=== PATIENT | male | born 1955 | race Caucasian/White ===

== ENCOUNTER → 2016-09-05 | Outpatient (CLI) | payer BC ==
[~2016-09-05] MED LIST: ACET-1256 PO; ALLO100T PO; ASPI81TA21 PO; ATOR-26 PO; CHOL100010; ENOX40IN SQ; ERGO500037 PO; EZET10TA63 PO; GLC/500 PO; LISI-461 PO; MAGN1CAP2 PO; MAGN400C2 PO; METF-384 PO; METO25TA56 PO; SITA50TA3 PO; WARF2TAB8 PO; WARF4TAB43 PO; WARF6TAB5 PO; ZNTT/150 PO
[2016-09-05 09:48] LABS: BASO % 0.4 %; BASO ABS # 0.03 K/uL (0-0.2); COMPLETE YES; EOS % 3.7 %; IG% 0.3 %; LYMPH % 25.8 %; LYMPH ABS # 1.76 K/uL (1.2-3.4); MEAN CELL VOLUME 94.9 fL (80-100); MEAN CORPUSCULAR HEMOGLOBIN 30.3 pg (25-34); MEAN PLATELET VOLUME 10.5 fL (7.4-10.4); MONO % 5.6 %; NEUT % 64.2 %; PLATELET COUNT 221 K/uL (130-400); RED BLOOD COUNT 4.32 M/uL (4.7-6.1); WHITE BLOOD COUNT 6.82 K/uL (4.8-10.8)
[2016-09-05 10:03] LABS: BLOOD UREA NITROGEN 20 mg/dl (7-18); BUN/CREATININE RATIO 14.4 (10-20); CARBON DIOXIDE 22 mmol/L (21-32); CHLORIDE 110 mmol/L (98-107); CHOLESTEROL 121 mg/dl (0-200); GLUCOSE 118 mg/dl (70-99); MAGNESIUM 1.6 mg/dl (1.8-2.4); POTASSIUM 4.4 mmol/L (3.5-5.1); SODIUM 141 mmol/L (136-145); TRIGLYCERIDES 192 mg/dl (0-150); VERY LOW DENSITY LIPOPROT CALC 38 mg/dl
[2016-09-05 10:06] LABS: CALCIUM 8.7 mg/dl (8.5-10.1)
[2016-09-05 10:07] LABS: CHOLESTEROL/HDL RATIO 3.5; HDL CHOLESTEROL 35 mg/dl; LDL CHOLESTEROL CALCULATED 48 mg/dl; PHOSPHORUS 1.8 mg/dl (2.5-4.9)
[2016-09-05 10:12] LABS: URINE APPEARANCE CLEAR (CLEAR); URINE BILIRUBIN NEG (NEG); URINE COLOR YELLOW; URINE NITRITE NEG (NEG); URINE SPECIFIC GRAVITY 1.018 (1.000-1.030); UROBILINOGEN NEG (NEG); ZZUR CULT IF INDIC CLEAN CATCH NO
[2016-09-05 10:17] LABS: MANUAL MICROSCOPIC REQUIRED? NO; REVIEW REQ? NO
[2016-09-05 10:29] LABS: ESTIMATED AVERAGE GLUCOSE 143 mg/dl; HA1C FLAG Normal (Normal)
[2016-09-05 20:30] LABS: URINE PROTIEN/CREAT RATIO 0.2 (0-0.2); URINE TOTAL PROTEIN 48.2 mg/dl (0-11.9)
== END | disposition home or self-care (01) ==
LOC: C.LAB1850 06:59
PROVIDERS: ATTEND Internal Medicine Nephrology
DX: E11.9 Type 2 diabetes mellitus without complications (principal); E78.00 Pure hypercholesterolemia, unspecified; N18.3 Chronic kidney disease, stage 3 (moderate)

== ENCOUNTER → 2017-02-26 | Outpatient (CLI) | payer BC ==
[~2017-02-26] MED LIST changes: -ACET-1256 PO; -CHOL100010; -ENOX40IN SQ; -GLC/500 PO; -MAGN400C2 PO; -WARF4TAB43 PO
[2017-02-26 09:56] LABS: BLOOD UREA NITROGEN 20 mg/dl (7-18); BUN/CREATININE RATIO 12.9 (10-20); CALCIUM 8.7 mg/dl (8.5-10.1); CARBON DIOXIDE 20 mmol/L (21-32); CHLORIDE 111 mmol/L (98-107); CREATININE 1.53 mg/dl (0.60-1.40); GLUCOSE 118 mg/dl (70-99); POTASSIUM 4.5 mmol/L (3.5-5.1); SODIUM 140 mmol/L (136-145); URIC ACID 9.2 mg/dl (2.6-7.2)
[2017-02-26 09:59] LABS: CHOLESTEROL 125 mg/dl (0-200); CHOLESTEROL/HDL RATIO 3.9; HDL CHOLESTEROL 32 mg/dl; LDL CHOLESTEROL CALCULATED 48 mg/dl; PHOSPHORUS 2.2 mg/dl (2.5-4.9); TRIGLYCERIDES 223 mg/dl (0-150); VERY LOW DENSITY LIPOPROT CALC 45 mg/dl
[2017-02-26 10:07] LABS: ESTIMATED AVERAGE GLUCOSE 134 mg/dl; HA1C FLAG Normal (Normal)
== END | disposition home or self-care (01) ==
LOC: C.LAB1850 06:53
PROVIDERS: ATTEND Nurse Practitioner Family
DX: N18.3 Chronic kidney disease, stage 3 (moderate) (principal); E78.00 Pure hypercholesterolemia, unspecified; E11.22 Type 2 diabetes mellitus with diabetic chronic kidney disease; M10.9 Gout, unspecified

== ENCOUNTER → 2017-03-05 | Day surgery (SDC) | payer BC ==
[2017-02-19 10:52] VITALS: Ht 179.1 cm; Wt 136.4 kg
[~2017-03-05] VITALS: Ht 179.1 cm; Wt 136.4 kg
[~2017-03-05] MED LIST changes: +ATROPINE SULFATE 0.1 MG/ML 5ML SYR IV PRN; +ENOX40IN SQ; +EpHEDrine SULFATE INJ 50 MG/ML AMP IV PRN; +LIDOCAINE HCL 2% 2 ML VIAL (20MG/ML) ONE; +MIDAZOLAM HCL 1 MG/ML 2ML VIAL ONE; +PHENYLEPHRINE 100MCG/ML 5ML SYR ONE; +PROPOFOL IV EMULSION 10 MG/ML 20 ML VIAL IV ONE
--- NOTE | 2017-03-05 08:37 | Endo History and Physical ---
History & Physical Date of Service: Mar 05, 2017. Chief Complaint: Screening Referring Physician: RUBEN Baptiste III History of Present Illness 61 yo CM who presents for screening colonoscopy. Past Surgical History Hx Cardiac Surgery: No Hx Internal Defibrillator: No Hx Pacemaker: No Hx Abdominal Surgery: No Hx of Implantable Prosthesis: No Hx Post-Op Nausea and Vomiting: No Hx Cancer Surgery: No Hx Thoracic Surgery: No Hx Orthopedic: Yes (RT RCR, RT CTR, LUMBAR FUSION) Hx Urinary Tract Surgery: No Family History None Social History Smoking Status: Former Smoker Hx Substance Use: No Hx Alcohol Use: No (RARELY) Allergies Coded Allergies: No Known Allergies (Verified , 02/19/17) Current Medications Reported Home Medications Medications Dose Route/Sig Max Daily Dose Days Date Category Dose Instructions Lovenox (Enoxaparin Sodium) 40 Mg/0.4 Ml Inj 40 Mg SQ DAILY 03/05/17 Reported Zyloprim (Allopurinol) 100 Mg Tab 1 Tab PO DAILY 30 03/04/17 Reported Increase to 200 mg daily after 30 days Magnesium (Magnesium Oxide (Mg Supplement) 400 Mg Cap 1 Cap PO 3XWK 02/19/17 Reported Vitamin D 64482 Unit (Ergocalciferol) 50,000 Unit Cap 50,000 Unit PO WK 02/19/17 Reported Lipitor (Atorvastatin Calcium) 80 Mg Tab 80 Mg PO QPM 02/19/17 Reported Jantoven (Warfarin Sodium) 2 Mg Tab 7 Mg PO 2XWK 02/19/17 Reported Jantoven (Warfarin Sodium) 6 Mg Tab 6 Mg PO 5XWK 02/19/17 Reported Lopressor (Metoprolol Tartrate) 25 Mg Tab 25 Mg PO BID 02/19/17 Reported Zantac (Ranitidine HCl) 150 Mg Tab 150 Mg PO BID 02/19/17 Reported Glucophage (Metformin Hcl) 1,000 Mg Tab 1,000 Mg PO BID 02/19/17 Reported Januvia (Sitagliptin) 50 Mg Tab 50 Mg PO QAM 06/20/14 Reported Ecotrin Or Generic (Aspirin) 81 Mg Tab 81 Mg PO QAM 03/21/12 Reported Zestril (Lisinopril) 10 Mg Tab 10 Mg PO QAM 03/19/07 Reported Zetia (Ezetimibe) 10 Mg Tab 10 Mg PO QAM 03/19/07 Reported Vital Signs Weight (Kilograms): 136.36 Height (Feet): 5 Height (Inches): 10.5 Date Time Temp Pulse Resp B/P (MAP) Pulse Ox O2 Delivery O2 Flow Rate FiO2 03/05/17 08:10 36.7 74 20 121/88 (99) 95 Room Air Physical Exam General Appearance: WD/WN, no apparent distress Respiratory/Chest: Auscultation: breath sounds normal Cardiovascular: Heart Auscultation: RRR Abdomen: Bowel Sounds: normal Inspection & Palpation: soft, non-distended, no tenderness, guarding & rebound Assessment and Plan Assessment: 61 yo CM who presents for screening colonoscopy. Plan: Proceed with colonoscopy.
--- NOTE | 2017-03-05 09:26 | Anesthesiology Progress Note ---
Anesthesia Post Op Note Date & Time Mar 05, 2017 at 09:26 Vital Signs Pain Intensity: 0 Vital Signs Past 12 Hours Date Time Temp Pulse Resp B/P (MAP) Pulse Ox O2 Delivery O2 Flow Rate FiO2 03/05/17 09:16 72 16 90/62 (71) 94 Room Air 03/05/17 08:10 36.7 74 20 121/88 (99) 95 Room Air Notes Mental Status: alert / awake / arousable, participated in evaluation Pt Amnestic to Procedure: Yes Nausea / Vomiting: adequately controlled Pain: adequately controlled Airway Patency, RR, SpO2: stable & adequate BP & HR: stable & adequate Hydration State: stable & adequate Anesthetic Complications: no major complications apparent
--- NOTE | 2017-03-05 09:29 | Discharge Instructions ---
Endoscopy Patient Instructions Date / Procedure(s) Performed Mar 05, 2017. Colonoscopy Allergy Information Coded Allergies: No Known Allergies (Verified , 02/19/17) Discharge Date / Findings Mar 05, 2017. Colon polyp Internal hemorrhoids Medication Instructions Stopped Medication(s): stopped warfarin Friday,took ASA yesterday OK to resume all medications today as prescribed Reported Home Medications Medications Dose Route/Sig Max Daily Dose Days Date Category Dose Instructions Lovenox (Enoxaparin Sodium) 40 Mg/0.4 Ml Inj 40 Mg SQ DAILY 03/05/17 Reported Zyloprim (Allopurinol) 100 Mg Tab 1 Tab PO DAILY 30 03/04/17 Reported Increase to 200 mg daily after 30 days Magnesium (Magnesium Oxide (Mg Supplement) 400 Mg Cap 1 Cap PO 3XWK 02/19/17 Reported Vitamin D 62606 Unit (Ergocalciferol) 50,000 Unit Cap 50,000 Unit PO WK 02/19/17 Reported Lipitor (Atorvastatin Calcium) 80 Mg Tab 80 Mg PO QPM 02/19/17 Reported Jantoven (Warfarin Sodium) 2 Mg Tab 7 Mg PO 2XWK 02/19/17 Reported Jantoven (Warfarin Sodium) 6 Mg Tab 6 Mg PO 5XWK 02/19/17 Reported Lopressor (Metoprolol Tartrate) 25 Mg Tab 25 Mg PO BID 02/19/17 Reported Zantac (Ranitidine HCl) 150 Mg Tab 150 Mg PO BID 02/19/17 Reported Glucophage (Metformin Hcl) 1,000 Mg Tab 1,000 Mg PO BID 02/19/17 Reported Januvia (Sitagliptin) 50 Mg Tab 50 Mg PO QAM 06/20/14 Reported Ecotrin Or Generic (Aspirin) 81 Mg Tab 81 Mg PO QAM 03/21/12 Reported Zestril (Lisinopril) 10 Mg Tab 10 Mg PO QAM 03/19/07 Reported Zetia (Ezetimibe) 10 Mg Tab 10 Mg PO QAM 03/19/07 Reported Provider Instructions Activity Restrictions - No exercising or heavy lifting for 24 hours. - Do not drink alcohol the day of the procedure. - Do not drive a car or operate machinery until the day after the procedure. - Do not make any important decisions or sign important papers in 24 hours after the procedure. Following Day: - Return to full activity which may include returning to work/school. Diet Start your diet with liquids and light foods (jello, soup, juice, toast). Then eat your usual diet if not nauseated. Treatment For Common After Affects For mild abdominal pain, bloating, or excessive gas: - Rest - Eat lightly - Lie on right side Follow-Up Information Follow-up with RUBEN Baptiste III as scheduled Anesthesia Information What You Should Know You have had a procedure that required some medicine to reduce anxiety and discomfort. This treatment is called moderate sedation. After receiving the treatment, you may be sleepy, but you will be able to breathe on your own. The effects of the treatment may last for several hours. Follow these instructions along with Activity/Diet recommendations noted above: * Do NOT do anything where dizziness or clumsiness would be dangerous. * Rest quietly at home today, then you can be up and about tomorrow. * Have a responsible person stay with you the rest of today. * You may have had an I.V. today. If so, you may take the dressing off later today. Recommendations Call your doctor if: * Trouble breathing * Continuous vomiting for more than 24 hours * Temperature above 101 degrees * Severe abdominal pain or bloating * Pain not relieved by pain medicine ordered * There is increased drainage or redness from any incision * A large amount of rectal bleeding greater than 2-3 tablespoons. (If you had a polyp/s removed or have hemorrhoids, a small amount of blood - from the rectum is to be expected.) * You have any unanswered questions or concerns. IN THE EVENT OF A SERIOUS EMERGENCY, GO TO THE NEAREST EMERGENCY ROOM Your discharge instructions were prepared by provider Konrad Chaves. Patient Instructions Signature Page Armando Owens Patient (or Guardian) Signature/Date: I have read and understand the instructions given to me by my caregivers. Caregiver/RN/Doctor Signature/Date: The above-named patient and/or guardian has received patient instructions on this date. + Original Patient Signature Page (only) stays with chart. Please make copy for patient.
[2017-03-05 09:46] VITALS: BP 119/84; PULSE 67; O2SAT 95
--- NOTE | 2017-03-05 20:24 | GI REPORT ---
Procedure Date: 03/05/2017 8:11 AM Procedure: Colonoscopy Indications: Screening for colorectal malignant neoplasm Medicines: Monitored Anesthesia Care Complications: No immediate complications. Estimated Blood Loss: Estimated blood loss: none. Procedure: Pre-Anesthesia Assessment: - Prior to the procedure, a History and Physical was performed, and patient medications and allergies were reviewed. The patient's tolerance of previous anesthesia was also reviewed. The risks and benefits of the procedure and the sedation options and risks were discussed with the patient. All questions were answered, and informed consent was obtained. Prior Anticoagulants: The patient last took aspirin 1 day, Coumadin (warfarin) 5 days and Lovenox (enoxaparin) 1 day prior to the procedure. ASA Grade Assessment: IV - A patient with severe systemic disease that is a constant threat to life. After reviewing the risks and benefits, the patient was deemed in satisfactory condition to undergo the procedure. After I obtained informed consent, the scope was passed under direct vision. Throughout the procedure, the patient's blood pressure, pulse, and oxygen saturations were monitored continuously. The scope was introduced through the anus and advanced to the cecum, identified by appendiceal orifice and ileocecal valve. The colonoscopy was performed without difficulty. The patient tolerated the procedure well. The quality of the bowel preparation was good. The ileocecal valve, appendiceal orifice, and rectum were photographed. Findings: The perianal and digital rectal examinations were normal. A 6 mm polyp was found in the ascending colon. The polyp was sessile. The polyp was removed with a hot snare. Resection and retrieval were complete. Non-bleeding internal hemorrhoids were found during retroflexion. The hemorrhoids were small. Impression: - One 6 mm polyp in the ascending colon, removed with a hot snare. Resected and retrieved. - Non-bleeding internal hemorrhoids. Recommendation: - Resume previous diet. - Continue present medications. - Repeat colonoscopy for surveillance based on pathology results. - Return to primary care physician as previously scheduled. Konrad Chaves DO 03/05/2017 9:33:35 AM This report has been signed electronically. Note Initiated On: 03/05/2017 8:11 AM I attest to the content of the Intraoperative Record and orders documented therein, exceptions below
== END | disposition home or self-care (01) ==
LOC: C.GI 07:39
PROVIDERS: ATTEND Internal Medicine
DX: Z12.11 Encounter for screening for malignant neoplasm of colon (principal); D12.2 Benign neoplasm of ascending colon; K64.8 Other hemorrhoids; I25.10 Atherosclerotic heart disease of native coronary artery without angina pectoris; I10 Essential (primary) hypertension; E11.9 Type 2 diabetes mellitus without complications; I25.2 Old myocardial infarction; J45.909 Unspecified asthma, uncomplicated; G47.33 Obstructive sleep apnea (adult) (pediatric); Z68.41 Body mass index [BMI] 40.0-44.9, adult; E66.01 Morbid (severe) obesity due to excess calories; Z98.890 Other specified postprocedural states; Z79.01 Long term (current) use of anticoagulants; Z87.891 Personal history of nicotine dependence

== ENCOUNTER → 2017-08-07 | Outpatient (CLI) | payer BC ==
[~2017-08-07] MED LIST changes: -ATROPINE SULFATE 0.1 MG/ML 5ML SYR IV PRN; -ENOX40IN SQ; -EpHEDrine SULFATE INJ 50 MG/ML AMP IV PRN; -LIDOCAINE HCL 2% 2 ML VIAL (20MG/ML) ONE; -MIDAZOLAM HCL 1 MG/ML 2ML VIAL ONE; -PHENYLEPHRINE 100MCG/ML 5ML SYR ONE; -PROPOFOL IV EMULSION 10 MG/ML 20 ML VIAL IV ONE; +RANI150T85 PO; -ZNTT/150 PO
[2017-08-07 09:55] LABS: BASO % 0.6 %; BASO ABS # 0.05 K/uL (0-0.2); EOS % 8.9 %; EOS ABS # 0.72 K/uL (0-0.5); HEMATOCRIT 41.2 % (42-52); HEMOGLOBIN 13.5 g/dL (14.0-18.0); IG# 0.03 K/uL (0.00-0.02); LYMPH % 32.6 %; LYMPH ABS # 2.63 K/uL (1.2-3.4); MEAN CELL VOLUME 94.3 fL (80-100); MEAN CORPUSCULAR HEMOGLOBIN 30.9 pg (25-34); MEAN CORPUSCULAR HGB CONC 32.8 g/dl (32-36); MEAN PLATELET VOLUME 10.3 fL (7.4-10.4); MONO % 5.1 %; MONO ABS # 0.41 K/uL (0.11-0.59); NEUT % 52.4 %; NEUT ABS # 4.22 K/uL (1.4-6.5); PLATELET COUNT 249 K/uL (130-400); RED CELL DISTRIBUTION WIDTH CV 14.4 % (11.5-14.5); RED CELL DISTRIBUTION WIDTH SD 49.3 fL (36.4-46.3); WHITE BLOOD COUNT 8.06 K/uL (4.8-10.8)
[2017-08-07 10:55] LABS: ALBUMIN 3.6 gm/dl (3.4-5.0); ALT/SGPT 29 U/L (12-78); AST/SGOT 22 U/L (15-37); BLOOD UREA NITROGEN 23 mg/dl (7-18); CALCIUM 8.8 mg/dl (8.5-10.1); CARBON DIOXIDE 22 mmol/L (21-32); CREATININE 1.41 mg/dl (0.60-1.40); GLUCOSE 108 mg/dl (70-99); POTASSIUM 4.2 mmol/L (3.5-5.1); SODIUM 139 mmol/L (136-145); URIC ACID 5.2 mg/dl (2.6-7.2)
[2017-08-07 10:59] LABS: ALKALINE PHOSPHATASE 106 U/L (45-117); PHOSPHORUS 2.8 mg/dl (2.5-4.9); TOTAL PROTEIN 7.3 gm/dl (6.4-8.2)
== END | disposition home or self-care (01) ==
LOC: C.LAB1850 07:07
PROVIDERS: ATTEND Nurse Practitioner Family
DX: M10.9 Gout, unspecified (principal); E78.00 Pure hypercholesterolemia, unspecified; E11.22 Type 2 diabetes mellitus with diabetic chronic kidney disease; N18.3 Chronic kidney disease, stage 3 (moderate)

== ENCOUNTER → 2017-09-01 | Day surgery (SDC) | payer BC ==
[2017-08-26 08:54] VITALS: Ht 179.1 cm; Wt 136.4 kg
[~2017-09-01] VITALS: Ht 179.1 cm; Wt 136.4 kg
[~2017-09-01] MED LIST changes: +ASPI-319 PO; -ASPI81TA21 PO; +FENTANYL CITRATE INJ 50 MCG/1 ML 2 ML VIAL ONE; +LIDOCAINE HCL 2% 2 ML VIAL (20MG/ML) ONE; +PROPOFOL IV EMULSION 10 MG/ML 20 ML VIAL IV ONE; +RIVA1TAB4 PO; +SODIUM CHLORIDE 0.9% 500ML 500 ML IV ONE; -WARF2TAB8 PO; -WARF6TAB5 PO
[2017-09-01 08:27] VITALS: TEMP 36.6
--- NOTE | 2017-09-01 08:42 | Endo History and Physical ---
History & Physical Date of Service: Sep 01, 2017. Chief Complaint: Dysphagia Referring Physician: Don Verma History of Present Illness 62 yo CM who presents for EGD secondary to dysphagia. Past Surgical History Hx Cardiac Surgery: No Hx Internal Defibrillator: No Hx Pacemaker: No Hx Abdominal Surgery: No Hx of Implantable Prosthesis: No Hx Post-Op Nausea and Vomiting: No Hx Cancer Surgery: No Hx Thoracic Surgery: No Hx Orthopedic: Yes (RT RCR, RT CTR, LUMBAR FUSION) Hx Urinary Tract Surgery: No Family History None Social History Smoking Status: Former Smoker Hx Substance Use: No Hx Alcohol Use: Yes (RARELY) Allergies Coded Allergies: No Known Allergies (Verified , 08/26/17) Current Medications Reported Home Medications Medications Dose Route/Sig Max Daily Dose Days Date Category Zyloprim (Allopurinol) 100 Mg Tab 200 Mg PO QAM 08/26/17 Reported Xarelto (Rivaroxaban) 20 Mg Tab 20 Mg PO QPM 08/26/17 Reported Magnesium (Magnesium Oxide (Mg Supplement) 400 Mg Cap 1 Cap PO 3XWK 02/19/17 Reported Vitamin D 31209 Unit (Ergocalciferol) 50,000 Unit Cap 50,000 Unit PO WK 02/19/17 Reported Lipitor (Atorvastatin Calcium) 80 Mg Tab 80 Mg PO QPM 02/19/17 Reported Lopressor (Metoprolol Tartrate) 25 Mg Tab 25 Mg PO BID 02/19/17 Reported Zantac (Ranitidine HCl) 150 Mg Tab 150 Mg PO BID 02/19/17 Reported Glucophage (Metformin Hcl) 1,000 Mg Tab 1,000 Mg PO BID 02/19/17 Reported Januvia (Sitagliptin) 50 Mg Tab 50 Mg PO QAM 06/20/14 Reported Ecotrin Or Generic (Aspirin) 81 Mg Tab 81 Mg PO QAM 03/21/12 Reported Zestril (Lisinopril) 10 Mg Tab 10 Mg PO QAM 03/19/07 Reported Zetia (Ezetimibe) 10 Mg Tab 10 Mg PO QAM 03/19/07 Reported Vital Signs Weight (Kilograms): 136.36 Height (Feet): 5 Height (Inches): 10.5 Date Time Temp Pulse Resp B/P (MAP) Pulse Ox O2 Delivery O2 Flow Rate FiO2 09/01/17 08:27 36.6 75 20 157/89 (111) 95 Room Air Physical Exam General Appearance: WD/WN, no apparent distress Respiratory/Chest: Auscultation: breath sounds normal Cardiovascular: Heart Auscultation: RRR Abdomen: Bowel Sounds: normal Inspection & Palpation: soft, non-distended, no tenderness, guarding & rebound Assessment and Plan Assessment: 62 yo CM who presents for EGD secondary to dysphagia. Plan: Proceed with EGD.
--- NOTE | 2017-09-01 09:32 | GI REPORT ---
Procedure Date: 09/01/2017 9:12 AM Procedure: Upper GI endoscopy Indications: Dysphagia Medicines: Monitored Anesthesia Care Complications: No immediate complications. Estimated Blood Loss: Estimated blood loss: none. Procedure: Pre-Anesthesia Assessment: - Prior to the procedure, a History and Physical was performed, and patient medications and allergies were reviewed. The patient's tolerance of previous anesthesia was also reviewed. The risks and benefits of the procedure and the sedation options and risks were discussed with the patient. All questions were answered, and informed consent was obtained. Prior Anticoagulants: The patient last took aspirin 1 day and Xarelto (rivaroxaban) 3 days prior to the procedure. ASA Grade Assessment: III - A patient with severe systemic disease. After reviewing the risks and benefits, the patient was deemed in satisfactory condition to undergo the procedure. After obtaining informed consent, the endoscope was passed under direct vision. Throughout the procedure, the patient's blood pressure, pulse, and oxygen saturations were monitored continuously. The scope was introduced through the mouth, and advanced to the second part of duodenum. The upper GI endoscopy was accomplished without difficulty. The patient tolerated the procedure well. Findings: Moderately severe esophagitis with no bleeding was found. Biopsies were taken with a cold forceps for histology in the mid and distal esophagus. One benign-appearing, intrinsic stenosis was found. This stenosis was moderately severe and measured 1.2 cm (inner diameter) x 1 cm (in length). Passage of the endoscope resulted in distal esophageal dilation. The stenosis was traversed. The stomach was normal. The examined duodenum was normal. Impression: - Moderately severe chronic esophagitis. Biopsied. - Benign-appearing esophageal stenosis. - Normal stomach. - Normal examined duodenum. Recommendation: - Resume previous diet. - Use Protonix (pantoprazole) 40 mg PO BID. - Stop Zantac (ranitidine) therapy - Await pathology results. - Return to primary care physician as previously scheduled. Konrad Chaves, DO 09/01/2017 9:32:20 AM This report has been signed electronically. Note Initiated On: 09/01/2017 9:12 AM I attest to the content of the Intraoperative Record and orders documented therein, exceptions below
--- NOTE | 2017-09-01 09:34 | Discharge Instructions ---
Endoscopy Patient Instructions Date / Procedure(s) Performed Sep 01, 2017. EGD Allergy Information Coded Allergies: No Known Allergies (Verified , 08/26/17) Discharge Date / Findings Sep 01, 2017. Esophageal stricture Esophagitis s/p biopsies Medication Instructions Stopped Medication(s): Xarelto stopped 08/29/17 Metformin stopped 08/30/17 81mg Aspirin stopped 08/31/17 1) Stop Ranitidine 2) Start Protonix 40mg by mouth twice daily 3) OK to resume all other medications as prescribed Reported Home Medications Medications Dose Route/Sig Max Daily Dose Days Date Category Zyloprim (Allopurinol) 100 Mg Tab 200 Mg PO QAM 08/26/17 Reported Xarelto (Rivaroxaban) 20 Mg Tab 20 Mg PO QPM 08/26/17 Reported Magnesium (Magnesium Oxide (Mg Supplement) 400 Mg Cap 1 Cap PO 3XWK 02/19/17 Reported Vitamin D 66234 Unit (Ergocalciferol) 50,000 Unit Cap 50,000 Unit PO WK 02/19/17 Reported Lipitor (Atorvastatin Calcium) 80 Mg Tab 80 Mg PO QPM 02/19/17 Reported Lopressor (Metoprolol Tartrate) 25 Mg Tab 25 Mg PO BID 02/19/17 Reported Zantac (Ranitidine HCl) 150 Mg Tab 150 Mg PO BID 02/19/17 Reported Glucophage (Metformin Hcl) 1,000 Mg Tab 1,000 Mg PO BID 02/19/17 Reported Januvia (Sitagliptin) 50 Mg Tab 50 Mg PO QAM 06/20/14 Reported Ecotrin Or Generic (Aspirin) 81 Mg Tab 81 Mg PO QAM 03/21/12 Reported Zestril (Lisinopril) 10 Mg Tab 10 Mg PO QAM 03/19/07 Reported Zetia (Ezetimibe) 10 Mg Tab 10 Mg PO QAM 03/19/07 Reported Provider Instructions Activity Restrictions - No exercising or heavy lifting for 24 hours. - Do not drink alcohol the day of the procedure. - Do not drive a car or operate machinery until the day after the procedure. - Do not make any important decisions or sign important papers in 24 hours after the procedure. Following Day: - Return to full activity which may include returning to work/school. Diet Start your diet with liquids and light foods (jello, soup, juice, toast). Then eat your usual diet if not nauseated. Treatment For Common After Affects For mild abdominal pain, bloating, or excessive gas: - Rest - Eat lightly - Lie on right side Follow-Up Information Follow-up with Don Verma as scheduled Anesthesia Information What You Should Know You have had a procedure that required some medicine to reduce anxiety and discomfort. This treatment is called moderate sedation. After receiving the treatment, you may be sleepy, but you will be able to breathe on your own. The effects of the treatment may last for several hours. Follow these instructions along with Activity/Diet recommendations noted above: * Do NOT do anything where dizziness or clumsiness would be dangerous. * Rest quietly at home today, then you can be up and about tomorrow. * Have a responsible person stay with you the rest of today. * You may have had an I.V. today. If so, you may take the dressing off later today. Recommendations Call your doctor if: * Trouble breathing * Continuous vomiting for more than 24 hours * Temperature above 101 degrees * Severe abdominal pain or bloating * Pain not relieved by pain medicine ordered * There is increased drainage or redness from any incision * A large amount of rectal bleeding greater than 2-3 tablespoons. (If you had a polyp/s removed or have hemorrhoids, a small amount of blood - from the rectum is to be expected.) * You have any unanswered questions or concerns. IN THE EVENT OF A SERIOUS EMERGENCY, GO TO THE NEAREST EMERGENCY ROOM Your discharge instructions were prepared by provider Konrad Chaves. Patient Instructions Signature Page Armando Owens Patient (or Guardian) Signature/Date: I have read and understand the instructions given to me by my caregivers. Caregiver/RN/Doctor Signature/Date: The above-named patient and/or guardian has received patient instructions on this date. + Original Patient Signature Page (only) stays with chart. Please make copy for patient.
[2017-09-01 10:00] VITALS: BP 125/68; PULSE 66; O2SAT 96
--- NOTE | 2017-09-01 10:06 | Anesthesiology Progress Note ---
Anesthesia Post Op Note Date & Time Sep 01, 2017 at 10:06 Vital Signs Pain Intensity: 0 Vital Signs Past 12 Hours Date Time Temp Pulse Resp B/P (MAP) Pulse Ox O2 Delivery O2 Flow Rate FiO2 09/01/17 10:00 66 20 125/68 (87) 96 Room Air 09/01/17 09:48 75 20 121/78 (92) 94 Room Air 09/01/17 09:34 75 20 107/60 (76) 94 Room Air 09/01/17 08:27 36.6 75 20 157/89 (111) 95 Room Air Notes Mental Status: alert / awake / arousable, participated in evaluation Pt Amnestic to Procedure: Yes Nausea / Vomiting: adequately controlled Pain: adequately controlled Airway Patency, RR, SpO2: stable & adequate BP & HR: stable & adequate Hydration State: stable & adequate Anesthetic Complications: no major complications apparent
== END | disposition home or self-care (01) ==
LOC: C.GI 07:57
PROVIDERS: ATTEND Internal Medicine
DX: R13.10 Dysphagia, unspecified (principal); K22.2 Esophageal obstruction; K20.9 Esophagitis, unspecified; E11.9 Type 2 diabetes mellitus without complications; I25.10 Atherosclerotic heart disease of native coronary artery without angina pectoris; G47.33 Obstructive sleep apnea (adult) (pediatric); Z98.1 Arthrodesis status; Z79.01 Long term (current) use of anticoagulants; Z79.82 Long term (current) use of aspirin

== ENCOUNTER 2024-11-02 01:48 | Inpatient (IN) ==
[2024-11-02] MEDS: OPTIRAY 320 125ml IV ONE (02:13)
--- NOTE | 2024-11-02 02:14 | Emergency Department Note ---
History of Present Illness General Chief complaint: TIA Symptoms Stated complaint: possible stroke Time Seen by Provider: 11/02/24 01:55 History of Present Illness This 69-year-old male on Coumadin for history of DVT and PE presents ER for strokelike symptoms. Patient states around 1999 his left leg felt heavy and had some numbness and tingling. At 1 AM he started to feel like his left arm was getting weak and had some slurred speech. Family was concerned and brought him in. Recent Coumadin check was 1.9. Patient states he tried to get up and noticed his arm was weak and fell striking his head. Patient denies chest pain, dyspnea, headache, neck pain, loss of vision, change in vision, abdominal pain, history of CVA. Home Medications Medication Instructions Recorded Confirmed Type aspirin 81 mg tablet 81 mg PO DAILY 02/17/19 11/02/24 History mecobalamin (vitamin B12) 1,000 1,000 mcg PO DAILY 10/23/21 11/02/24 History mcg chewable tablet cholecalciferol (vitamin D3) 25 2,000 unit PO DAILY 04/21/23 11/02/24 History mcg (1,000 unit) capsule albuterol sulfate 90 mcg/actuation 1 inh inhalation QID PRN shortness 09/10/23 11/02/24 Rx aerosol inhaler of breath or wheezing #6.7 grams pantoprazole 40 mg tablet,delayed 40 mg PO DAILY #90 tabs 01/19/24 11/02/24 Rx release ezetimibe 10 mg tablet 10 mg PO DAILY #90 tabs 05/13/24 11/02/24 Rx metformin 1,000 mg tablet 1,000 mg PO BID #180 tabs 05/13/24 11/02/24 Rx sitagliptin phosphate 50 mg tablet 50 mg PO DAILY #90 tabs 05/13/24 11/02/24 Rx (Januvia) calcitriol 0.25 mcg capsule 0.25 mcg PO .COMPLEX #36 caps 05/19/24 11/02/24 Rx allopurinol 100 mg tablet 100 mg PO DAILY #90 tabs 06/07/24 11/02/24 Rx magnesium glycinate 100 mg (as 100 mg PO BID 08/12/24 11/02/24 History glycinate) tablet warfarin 6 mg tablet See Rx Instructions PO .COMPLEX 08/12/24 11/02/24 History metoprolol tartrate 25 mg tablet 25 mg PO BID #180 tabs 08/16/24 11/02/24 Rx atorvastatin 80 mg tablet 80 mg PO DAILY #90 tabs 09/06/24 11/02/24 Rx lisinopril 10 mg tablet 10 mg PO HS #90 tabs 10/21/24 11/02/24 Rx levothyroxine 100 mcg tablet 100 mcg PO DAILY 11/02/24 11/02/24 History Allergies Allergy/AdvReac Type Severity Reaction Status Date / Time No Known Drug Allergies Allergy Verified 10/21/24 09:49 Past Med/Surg History Problem List (Updated 11/02/24 @ 12:45 by Alber Calvin MD) CVA (cerebral vascular accident) Acquired hypothyroidism Dysarthria Left-sided weakness CVA (cerebral vascular accident) (Acute) Hypocalcemia (Chronic) Hypophosphatemia (Chronic) Medical History (Updated 11/02/24 @ 12:45 by Alber Calvin MD) Hx of deep venous thrombosis Obesity Gout Vitamin B12 deficiency Subclinical hypothyroidism Vitamin D deficiency Chronic anticoagulation Acquired lymphedema Coronary artery arteriosclerosis Depression Diabetes mellitus Chronic gastroesophageal reflux disease Hypercholesterolemia Benign essential hypertension Secondary hyperparathyroidism (of renal origin) Sleep apnea Stage III chronic kidney disease History of pulmonary embolism Rotator cuff dis NEC [place] filter in place Former smoker History of gout Surgical History History of root canal procedure History of rotator cuff surgery right History of back surgery History of carpal tunnel surgery of right wrist Family History (Updated 11/02/24 @ 05:07 by Damaso Acosta MD) Father S/P CABG x 3 Coronary heart disease Grandmother (Maternal) Stroke Myocardial infarction Grandfather (Maternal) No problems noted. Grandfather (Paternal) Prostate cancer Coronary heart disease Mother , age 60 during carotid artery surgery Stroke Carotid artery stenosis Other Heart disease Hypertension Denies family history of Ovarian cancer Breast cancer Colorectal cancer Social History (Updated 11/02/24 @ 05:08 by Damaso Acosta MD) Smoking Status: Former smoker Tobacco Type: Cigarettes Age Started Using Tobacco: 18; Age Quit Using Tobacco: 40; packs per day: 0.5; Smoking End Date: 1994; Second Hand Exposure: No; Do You Dip or Chew Tobacco: No; Hx Alcohol Use: Yes Alcohol type: beer Alcohol Intake Frequency: Monthly or Less Hx Substance Use: No Preferred Language: Mozambican Communication Ability: Effective Visual Impairment: No Limitations Hearing Ability: Normal Baked Goods Stock Clerk Required: No Beliefs That Will Affect Care: None marital status: Current Living Situation: Spouse current occupational status: retired current occupation: [employer] How many Children do You have: 2 Feels Safe at Home: Yes Safety Concerns: Feels Safe At This Time Childhood Exposure to Second-Hand Smoke: Yes Diet: regular Dental Care, Regularly: Yes Physical Activity Frequency: Does not Exercise Seatbelt Use: always Sunscreen Use: Yes Assistive Devices: Glasses Review of Systems A total of 10 systems reviewed and were otherwise negative Physical Exam Vital Signs Vital Signs - 24 hr 11/02/24 01:49 11/02/24 01:59 11/02/24 02:21 Temperature 36.3 C L Temperature Source Temporal Artery Scan Pulse Rate 71 72 Pulse Rate [Apical] Pulse Rhythm Regular Pulse Strength Normal Respiratory Rate 18 Respiratory Effort / Characteristics Non-Labored Spontaneous Respiratory Depth Normal Respiratory Pattern Regular Blood Pressure 192/86 H 162/78 H Blood Pressure [Right Arm] Blood Pressure Mean 121 115 Blood Pressure Mean [Right Arm] Blood Pressure Position Sitting Pulse Oximetry 96 Oxygen Delivery Method Room Air Sepsis Recent Fever Within 48 Hours No Sepsis New/Unexplained Change in Mental Status N/A Sepsis Action Taken by Nursing No Action Required 11/02/24 02:25 11/02/24 04:06 Temperature Temperature Source Pulse Rate 71 Pulse Rate [Apical] 76 Pulse Rhythm Pulse Strength Respiratory Rate 22 22 Respiratory Effort / Characteristics Respiratory Depth Respiratory Pattern Blood Pressure Blood Pressure [Right Arm] 162/78 H Blood Pressure Mean Blood Pressure Mean [Right Arm] 106 Blood Pressure Position Pulse Oximetry 95 Oxygen Delivery Method Room Air Sepsis Recent Fever Within 48 Hours Sepsis New/Unexplained Change in Mental Status Sepsis Action Taken by Nursing VITALS: Vitals are noted on the nurse's note and reviewed by myself. Vital signs stable. GENERAL: Pleasant patient, in no acute distress, nondiaphoretic, well-developed well-nourished. SKIN: The skin was without rashes, erythema, edema, or bruising. There is no tenting of the skin. Capillary reflex less than 2 seconds. HEAD: Normocephalic atraumatic. EARS: External auditory canals clear EYES: Pupils equal round and reactive to light and accommodation. Conjunctivae without injection, sclerae without icterus. Extraocular movements intact. NOSE: Patent, no discharge. MOUTH: Mucous membranes moist. Pharynx without erythema or exudate. Uvula midline. Airway patent. Tongue does not deviate. NECK: Supple without nuchal rigidity. No lymphadenopathy. No thyromegaly. Cervical spine is nontender. No JVD. HEART: Regular rate and rhythm LUNGS: Clear to auscultation bilaterally without wheezes, rales or rhonchi. No retractions or accessory muscle use. ABDOMEN: Positive bowel sounds x 4. Normal tympanic percussion. Soft, nontender, without masses or organomegaly. Gupta sign negative. No guarding or rebound tenderness. No CVA tenderness MUSCULOSKELETAL: No muscle atrophy, erythema, or edema noted. NEURO: Patient was alert and oriented to person place and time. Left arm drifts but does not touch the bed. Left leg drifts and does not touch the bed. Mild slurred speech appreciated. Mild left-sided nasolabial fold weakness. Decreased sensation to the left lower leg. All other extremities normal sensation to light and sharp touch. Cerebellar exam intact. No other focal neurological deficits. Course Administered Medications Allopurinol (Allopurinol 100 Mg Tab) 100 mg PO DAILY MORGAN Stop: 12/02/24 08:59 Last Admin: 11/02/24 08:38 Dose: 100 mg Documented By: OS Aspirin (Aspirin 81 Mg Ectab) 81 mg PO DAILY MORGAN Stop: 12/02/24 08:59 Last Admin: 11/02/24 08:38 Dose: 81 mg Documented By: OS Atorvastatin Calcium (Atorvastatin 40 Mg Tab) 80 mg PO DAILY MORGAN Stop: 12/02/24 08:59 Last Admin: 11/02/24 08:38 Dose: 80 mg Documented By: OS Cyanocobalamin (Cyanocobalamin (B-12) 500 Mcg Tablet) 1,000 mcg PO DAILY MORGAN Stop: 12/02/24 08:59 Last Admin: 11/02/24 08:38 Dose: 1,000 mcg Documented By: OS Ezetimibe (Ezetimibe 10 Mg Tab) 10 mg PO DAILY MORGAN Stop: 12/02/24 08:59 Last Admin: 11/02/24 08:38 Dose: 10 mg Documented By: OS Insulin Aspart (Insulin Aspart Per Unit Charge) 0 units SC ACHS MORGAN Stop: 12/02/24 07:29 Last Admin: 11/02/24 12:15 Dose: 1 units Documented By: OS Co-signed By: GOMEZ Admin: 11/02/24 10:30 Dose: Not Given Documented By: OS Levothyroxine Sodium (Levothyroxine Sodium 100 Mcg Tablet) 100 mcg PO DAILYBB [facility] Stop: 12/02/24 06:29 Last Admin: 11/02/24 06:36 Dose: 100 mcg Documented By: BLACK Metoprolol Tartrate (Metoprolol Tartrate 25 Mg Tab) 25 mg PO BID MORGAN Stop: 12/02/24 08:59 Last Admin: 11/02/24 08:38 Dose: 25 mg Documented By: OS Pantoprazole Sodium (Pantoprazole 40 Mg Tab) 40 mg PO DAILY MORGAN Stop: 12/02/24 08:59 Last Admin: 11/02/24 08:39 Dose: 40 mg Documented By: OS Vitamin D (Cholecalciferol 25 Mcg (1000 Units) Tab) 25 mcg PO DAILY MORGAN Stop: 12/02/24 08:59 Last Admin: 11/02/24 08:39 Dose: 25 mcg Documented By: OS Discontinued Medications Ioversol (Optiray 320 125ml) 119 ml IV ONCE ONE Stop: 11/02/24 02:14 Last Admin: 11/02/24 02:13 Dose: 119 ml Documented By: COLEMAN Patiromer (Patiromer Calcium Sorbitex 8.4 Gm Pack) 8.4 gm PO ONCE ONE Stop: 11/02/24 10:01 Last Admin: 11/02/24 10:24 Dose: 8.4 gm Documented By: OS Critical Care Time Critical Care Time: Yes Total Critical Care Time: 35 I have personally spent 35 minutes of critical care time in the direct management of this patient. This includes bedside care, interpretation of diagnostic studies, and testing, discussion with consultants, patient, and family members, and other required patient management activities. This 35 minutes is in excess of all separately billable procedures. Medical Decision Making Medical Records Attestation: I reviewed the patient's medical records. Home Medications Current Medication List: was personally reviewed by me Laboratory Data Attestation: I reviewed the patient's lab results. 11/02/24 02:02 11/02/24 02:02 Lab Results 06/24/25 06/24/25 06/24/25 Range/Units 02:02 02:03 02:20 WBC 8.52 (4.8-10.8) K/ul RBC 4.23 L (4.70-6.10) M/uL Hgb 11.3 L (14.0-18.0) g/dl POC Hgb 12.2 L (14.0-18.0) g/dl Hct 37.6 L (42.0-52.0) % POC Hct 36 L (42-52) % MCV 88.9 (80.0-100.0) fL MCH 26.7 (25.0-34.0) pg MCHC 30.1 L (32.0-36.0) g/dL RDW Std Deviation 53.7 H (36.4-46.3) fL RDW Coeff of Brian 16.6 H (11.5-14.5) % Plt Count 235 (130-400) K/uL MPV 9.7 (9.4-12.4) fL Immature Gran % (Auto) 0.4 % Neut % (Auto) 47.3 % Lymph % (Auto) 38.8 % Gentry % (Auto) 6.2 % Eos % (Auto) 6.5 % Baso % (Auto) 0.8 % Neut # (Auto) 4.03 (1.40-6.50) K/uL Lymph # (Auto) 3.31 (1.20-3.40) K/uL Gentry # (Auto) 0.53 (0.11-0.59) K/uL Eos # (Auto) 0.55 H (0.00-0.50) K/uL Baso # (Auto) 0.07 (0.00-0.20) K/uL Immature Gran # (Auto) 0.03 (0.01-0.20) K/uL PT 22.2 H (9.0-12.0) Seconds INR 2.2 H (0.9-1.1) APTT 30 (21-31) Seconds PTT Ratio 1.1 POC Sodium 142 (135-144) mmol/L Sodium 140 (136-145) mmol/L POC Potassium 5.3 H (3.3-5.0) mmol/L Potassium 5.2 H (3.5-5.1) mmol/L POC Chloride 112 (101-112) mmol/L Chloride 111 H (98-107) mmol/L Carbon Dioxide 21 (21-32) mmol/L POC Total CO2 19 L (24-31) mmol/L Anion Gap 8 (3-11) POC Anion Gap 17.0 (16-25) mmol/L POC BUN 25 H (7-18) mg/dl BUN 27 H (6-23) mg/dl Creatinine 1.86 H (0.6-1.4) mg/dl POC Creatinine 1.9 H (0.6-1.3) mg/dl Est Cr Clr Drug Dosing 52.7 ml/min eGFR 38.69 BUN/Creatinine Ratio 14.5 (10-20) Glucose 127 H (70-99(Fasting)) mg/dl POC Glucose (70-99) mg/dl POC Glucose (other) 127 H (70-99) mg/dl Calcium 8.9 (8.6-10.3) mg/dl POC Ioniz Calcium Rufina 1.23 (1.12-1.32) mmol/l Magnesium 1.8 (1.7-2.4) mg/dl Total Bilirubin 0.5 (0.2-1.0) mg/dl AST 15 (13-39) U/L ALT 13 (7-52) U/L Alkaline Phosphatase 101 (34-104) U/L Troponin I High Sens 5.8 (0-20) pg/ml Total Protein 6.7 (6.0-8.3) gm/dl Albumin 3.7 (3.4-5.0) gm/dl Globulin 3.0 (2.5-4.0) gm/dl Albumin/Globulin Ratio 1.2 (0.9-2) Blood Type A Positive Antibody Screen NEGATIVE 11/02/24 Range/Units 02:21 WBC (4.8-10.8) K/ul RBC (4.70-6.10) M/uL Hgb (14.0-18.0) g/dl POC Hgb (14.0-18.0) g/dl Hct (42.0-52.0) % POC Hct (42-52) % MCV (80.0-100.0) fL MCH (25.0-34.0) pg MCHC (32.0-36.0) g/dL RDW Std Deviation (36.4-46.3) fL RDW Coeff of Brian (11.5-14.5) % Plt Count (130-400) K/uL MPV (9.4-12.4) fL Immature Gran % (Auto) % Neut % (Auto) % Lymph % (Auto) % Gentry % (Auto) % Eos % (Auto) % Baso % (Auto) % Neut # (Auto) (1.40-6.50) K/uL Lymph # (Auto) (1.20-3.40) K/uL Gentry # (Auto) (0.11-0.59) K/uL Eos # (Auto) (0.00-0.50) K/uL Baso # (Auto) (0.00-0.20) K/uL Immature Gran # (Auto) (0.01-0.20) K/uL PT (9.0-12.0) Seconds INR (0.9-1.1) APTT (21-31) Seconds PTT Ratio POC Sodium (135-144) mmol/L Sodium (136-145) mmol/L POC Potassium (3.3-5.0) mmol/L Potassium (3.5-5.1) mmol/L POC Chloride (101-112) mmol/L Chloride (98-107) mmol/L Carbon Dioxide (21-32) mmol/L POC Total CO2 (24-31) mmol/L Anion Gap (3-11) POC Anion Gap (16-25) mmol/L POC BUN (7-18) mg/dl BUN (6-23) mg/dl Creatinine (0.6-1.4) mg/dl POC Creatinine (0.6-1.3) mg/dl Est Cr Clr Drug Dosing ml/min eGFR BUN/Creatinine Ratio (10-20) Glucose (70-99(Fasting)) mg/dl POC Glucose 124 H (70-99) mg/dl POC Glucose (other) (70-99) mg/dl Calcium (8.6-10.3) mg/dl POC Ioniz Calcium Rufina (1.12-1.32) mmol/l Magnesium (1.7-2.4) mg/dl Total Bilirubin (0.2-1.0) mg/dl AST (13-39) U/L ALT (7-52) U/L Alkaline Phosphatase (34-104) U/L Troponin I High Sens (0-20) pg/ml Total Protein (6.0-8.3) gm/dl Albumin (3.4-5.0) gm/dl Globulin (2.5-4.0) gm/dl Albumin/Globulin Ratio (0.9-2) Blood Type Antibody Screen Imaging Data Attestation: I personally reviewed and interpreted this imaging study as follows: Radiologist's Impression: Cervical Spine CT 11/02/24 02:02 EXAM: CT cervical spine wo con CLINICAL HISTORY: [place] TECHNIQUE: CT scan of the cervical spine was performed without the administration of intravenous contrast. Contiguous axial images were obtained from the skull base to the upper thoracic spine. Coronal and sagittal reformatted images were also reviewed. One of the following dose reduction techniques was utilized for this exam. Automated exposure control, adjustment of the mA and/or kV according to patient size, and use of iterative reconstruction. (CTDI: 36.79 mGy, DLP: 1783.51 mGy*cm) COMPARISON: No previous studies are available for comparison. FINDINGS: Vertebrae: Lost cervical lordosis suggests neck muscle spasm. The vertebral bodies are normal in height and alignment. No evidence of acute fracture or dislocation. The cortical and trabecular bone patterns are normal. No signs of lytic or sclerotic lesions. Normal configuration of the posterior elements. Intervertebral Discs: The intervertebral disc spaces are preserved. No evidence of significant disc bulging or herniation. No calcifications or ossifications noted within the discs. Facet Joints: The facet joints are showing advanced degenerative changes, more evident at the right C2-C3 level. No evidence of dislocation, subluxation. Neural Foramina: The neural foramina are patent bilaterally at all levels. No evidence of foraminal narrowing. Prevertebral Soft Tissues: The prevertebral soft tissues are normal in thickness without evidence of mass or abnormal fluid collection. IMPRESSION: 1. No evidence of acute fracture or dislocation 2. Lost cervical lordosis suggests neck muscle spasm. 3. The facet joints are showing advanced degenerative changes, more evident at the right C2-C3 level. 4. MRI cervical spine is advised if clinically indicated. Electronically signed by Eduardo Green 11-02-2024 03:[address] 11/02/24 02:02 EXAM: CT head/brain wo con CLINICAL HISTORY: neuro deficit, acute stroke suspected TECHNIQUE: Axial non-contrast CT scan of the brain was performed from the skull base to the high parietal region. One of the following dose reduction techniques were utilized for this exam: Automated exposure control, adjustment of the mA and/or kV according to patient size, use of iterative reconstruction. DLP: 1783.51 mGy.cm COMPARISON: CT 08/07/2024 09:38:15 ADVERTISING PROJECT MANAGER FINDINGS: Brain Parenchyma: Normal attenuation of the cerebral hemispheres, cerebellum, and brainstem. No evidence of acute infarct, hemorrhage, or mass effect. No abnormal areas of hypo- or hyperattenuation. Ventricular System: Ventricles are normal in size and configuration. No evidence of hydrocephalus or ventricular enlargement. Subarachnoid Spaces: Normal sulci and cisterns. No evidence of subarachnoid hemorrhage or extra-axial fluid collections. Cerebellum and Brainstem: No masses, lesions, or areas of abnormal density. Orbits: Normal appearance of the globes, optic nerves, and extraocular muscles. No evidence of orbital masses or abnormal density. Sinuses: Clear paranasal sinuses. No evidence of sinusitis or mucosal thickening. Mastoid Air Cells: Right chronic mastoiditis noted. Skull: Normal skull morphology. IMPRESSION: 1. No acute brain insult noted. 2. MRI (DWI and ADC) correlation is advised if clinically warranted. 3. Stable right chronic mastoiditis noted. 4. No interval time changes. The report was ready at 1:58 AM [facility], 11/02/2024 and the call was completed at 02:00 AM [facility], 11/02/2024 at [phone] Monge was informed regarding the negative stroke results. Electronically signed by Eduardo Green 11-02-2024 03:05 AM Head CTA 11/02/24 02:02 EXAM: CT angio head w con CLINICAL HISTORY: neuro deficit, acute stroke suspected TECHNIQUE: CT angiography of the head was performed following the intravenous administration of [specify contrast agent and amount] of iodinated contrast material. Contiguous axial images were obtained from the base of the skull to the vertex. Coronal and sagittal reformatted images were also reviewed. One of these 3D techniques was utilized: Maximum Intensity Pixel (MIP), 3D Reconstructed Images, Volume Rendered Images, Surface Shaded Rendering. One of the following dose reduction techniques was utilized for this exam. Automated exposure control, adjustment of the mA and/or kV according to patient size, and use of iterative reconstruction. COMPARISON: 08/07/2024. FINDINGS: Intracranial Arteries: The right internal carotid artery at ist cavernous segment shows a psoterior wall calcific plaques causing less than 50% stensos. The rest of intracranial arteries, including the anterior cerebral arteries, middle cerebral arteries, posterior cerebral arteries, basilar artery, and vertebral arteries, are all patent without evidence of significant stenosis, aneurysm, or dissection. There is no evidence of vascular malformations. [place] of Best: The [place] of Best is intact with no anatomical variations or abnormalities noted. All segments are well-visualized and normal in appearance. Venous System: The visualized portions of the venous system, including the dural venous sinuses, are patent with no evidence of thrombosis. Brain Parenchyma: The brain parenchyma shows no evidence of acute infarct, hemorrhage, or mass effect. The ventricles and sulci are normal in size and configuration. Bones: The bony structures of the skull are intact without evidence of fracture or destructive lesions. Soft Tissues: The visualized soft tissues of the head are unremarkable. Additional Findings: Right mastoid air cell effusion. IMPRESSION: No evidence of significant vascular abnormalities, acute infarct, or hemorrhage. Right Internal carotid segment cavernous segment calcific plaque showing less than 50% stenosis, otherwise rest of intracranial arteries are patent. Right mastoid air cell minimal effusion. No significant interval changes. The report was ready at 1:58 AM ADVERTISING PROJECT MANAGER, 11/02/2024 and the call was completed at 02:00 AM [facility], 11/02/2024 at [phone] Monge was informed regarding the negative stroke results. Electronically signed by Eduardo Green 11-02-2024 03:02 AM Neck CTA 11/02/24 02:02 EXAM: CT angio neck with con CLINICAL HISTORY: neuro deficit, acute stroke suspected TECHNIQUE: CT angiography of the head and neck was performed following the intravenous administration of iodinated contrast material. Axial images were obtained from the aortic arch to the vertex. Coronal and sagittal reformatted images were also reviewed. One of the following dose reduction techniques was utilized for this exam. Automated exposure control, adjustment of the mA and/or kV according to patient size, and use of iterative reconstruction. One of these 3D techniques was utilized: Maximum Intensity Pixel (MIP), 3D Reconstructed Images, Volume Rendered Images, Surface Shaded Rendering. DLP: 1783.51 mGy.cm COMPARISON: No previous studies are available for comparison. FINDINGS: Carotid Arteries: Both common carotid arteries are showing abnormal retropharyngeal location along their whole course, which cause compression to the pharynx and hypopharynx. Calcified atherosclerotic plaques are seen at both carotid bulbs with no hemodynamically signifcant stenosis ( stenosis less than 50%). another calcified plaque is seen at the cavernous segment of the right internal carotid artery with no hemodynamically stenosis. The common, internal, and external carotid arteries are patent bilaterally with no evidence of significant stenosis, aneurysm, or dissection. Vertebral Arteries: The vertebral arteries are patent bilaterally with no evidence of significant stenosis, aneurysm, or dissection. Dominant right vertebral artery. Thyroid Gland: The thyroid gland is normal in size and appearance with no focal lesions. Lymph Nodes: few bilateral cervical lymoh nodes of non specific nature, Soft Tissues: The soft tissues of the neck are unremarkable with no evidence of masses or abnormal collections. Additional Findings: trace of fluid at right mastoid air cells Suspicious mucosal thickening of the hypopahrynx noted, which might be due to compresison. IMPRESSION: 1. Retropharyngeal course of both common carotid arteries. 2. Mild atherosclerotic changes of both common carotid and right carotid arteries as detailed above with no hemodynamically significant stenosis. 3. No significant stenosis or occlusion. The report was ready at 1:58 AM ADVERTISING PROJECT MANAGER, 11/02/2024 and the call was completed at 02:00 AM ADVERTISING PROJECT MANAGER, 11/02/2024 at [phone] Monge was informed regarding the negative stroke results. Electronically signed by Eduardo Green 11-02-2024 03:10 AM [facility] Narrative Prior records/ancillary studies reviewed and summarized above. Nursing notes reviewed. Additional history obtained from family. The patient's history was concerning for strokelike symptoms. Differential diagnosis: Etiologies such as hemorrhagic stroke, ischemic stroke, TIA, metabolic, infection, hypo/hyperglycemia, electrolyte abnormalities, cardiac sources, intracerebral event, toxicologic, neurologic, as well as others were entertained. Physical examination: As above. ER treatment provided: IV Lock An order was placed for continuous cardiac monitoring. The monitor shows a rate of 60-100 with a sinus rhythm per my interpretation. Acute stroke alert was initiated. NIH 4 (right arm and leg weakness, slurred speech and minimal left-sided facial droop) Upon reassessment, the right arm weakness has resolved. The speech has improved. On reassessment the patient felt better. Diagnostics interpretation by me: ECG: Ordered for stroke symptoms EKG: Normal sinus, no acute ST-T wave changes, rate of 72. Impression normal sinus rhythm independently interpreted by myself The labs Independently Interpreted by myself revealed therapeutic INR Mild anemia Imaging studies: Imaging was reviewed and read by radiology Consultation: A consultation was placed with the telestroke neurologist at [place], Dr Gutierrez, and the case was reviewed. [facility] did initiate their stroke evaluation. Consultation was placed with the hospitalist. The case was discussed and diagnostics were reviewed. The patient was evaluated in the ER for further treatment. Exam and history seem consistent with CVA. Patient is outside the window for treatment. He is also on Coumadin. No hemorrhagic stroke. No large occlusion. Stroke alert was immediately initiated and needed upon my initial evaluation. [facility] did evaluate the patient. They state the patient had a mild stroke. Medicine was consulted and the case was discussed. Patient was admitted to the medical service for further evaluation and workup. INR is therapeutic. No intracranial bleed. By the evaluation outlined above emergent etiologies such as infection, electrolyte abnormalities, cardiac sources, toxologic, abnormalities blood glucose, metabolic, as well as others were deemed relatively unlikely. The pt informed about the findings as listed above. All questions were answered and pleased with the treatment. The chart was completed utilizing [employer] Speech voice recognition software. Grammatical errors, random word insertions, pronoun errors, and incomplete sentences are an occassional consequence of this system due to software limitations, ambient noise, and hardware issues. Any formal questions or concerns about the content, text, or information contained within the body of this dictation should be directly addressed to the physician registered sales assistant for clarification. Impression & Plan CVA (cerebral vascular accident) Discharge Plan Visit Data Chief Complaint: TIA Symptoms Stated Complaint: possible stroke ED Provider: Marc Florian ED Midlevel Provider: Andie Monge Discharge Problem: CVA (cerebral vascular accident) Patient Disposition: Admitted As Inpatient Condition: Good Discharge Instructions Interventions: ED Discharge Assessment Last Done: 11/02/24 05:37 Addendum November 02, 2024 17:15 I was consulted by the Advanced Practice Provider and was substantively involved in the patient's visit.This includes aspects of the HPI, MDM, diagnostic interpretations, and disposition/plan. I discussed the case with the CHRISTIAN and agree with the findings and plan as documented in CHRISTIAN Saleem's note. Discharge Problem: CVA (cerebral vascular accident) Qualifiers: CVA mechanism: unspecified Qualified Code(s): I63.9 - Cerebral infarction, unspecified
[2024-11-02 02:15] LABS: Basophils # (auto) 0.07 K/uL (0.00-0.20); Basophils % (auto) 0.8 %; Eosinophils # (auto) 0.55 K/uL (0.00-0.50); Eosinophils % (auto) 6.5 %; Hematocrit (blood only) 37.6 % (42.0-52.0); Hemoglobin 11.3 g/dl (14.0-18.0); Immature Granulocytes # (auto) 0.03 K/uL (0.01-0.20); Immature Granulocytes % (auto) 0.4 %; Lymphocytes # (auto) 3.31 K/uL (1.20-3.40); Lymphocytes % (auto) 38.8 %; Mean Corpuscular Hemoglobin 26.7 pg (25.0-34.0); Mean Corpuscular Hgb Conc 30.1 g/dL (32.0-36.0); Mean Corpuscular Volume 88.9 fL (80.0-100.0); Mean Platelet Volume 9.7 fL (9.4-12.4); Monocytes # (auto) 0.53 K/uL (0.11-0.59); Monocytes % (auto) 6.2 %; Neutrophils # (auto) 4.03 K/uL (1.40-6.50); Neutrophils % (auto) 47.3 %; Platelet Count 235 K/uL (130-400); RDW Coefficient of Variation 16.6 % (11.5-14.5); RDW Standard Deviation 53.7 fL (36.4-46.3); Red Blood Count 4.23 M/uL (4.70-6.10); White Blood Count 8.52 K/ul (4.8-10.8)
[2024-11-02 02:16] LABS: iSTAT Creatinine 1.9 mg/dl (0.6-1.3); iSTAT Hemoglobin 12.2 g/dl (14.0-18.0); iSTAT Ionized Calcium 1.23 mmol/l (1.12-1.32); iSTAT Potassium 5.3 mmol/L (3.3-5.0)
[2024-11-02 02:33] LABS: INR 2.2 (0.9-1.1); Partial Thromboplastin Ratio 1.1; Partial Thromboplastin Time 30 Seconds (21-31); Prothrombin Time 22.2 Seconds (9.0-12.0)
[2024-11-02 02:41] LABS: Albumin Level 3.7 gm/dl (3.4-5.0); Bilirubin,Total 0.5 mg/dl (0.2-1.0); Calcium 8.9 mg/dl (8.6-10.3); Magnesium 1.8 mg/dl (1.7-2.4); Potassium 5.2 mmol/L (3.5-5.1)
[2024-11-02 02:44] LABS: Troponin I High Sensitivity 5.8 pg/ml (0-20)
[2024-11-02 02:47] LABS: Albumin Globulin Ratio 1.2 (0.9-2); BUN Creatinine Ratio 14.5 (10-20); Creatinine Clr Calc Pharmacy 52.7 ml/min; Total Protein 6.7 gm/dl (6.0-8.3)
--- NOTE | 2024-11-02 03:03 | CT Scan Report ---
EXAM: CT angio head w con CLINICAL HISTORY: neuro deficit, acute stroke suspected TECHNIQUE: CT angiography of the head was performed following the intravenous administration of [specify contrast agent and amount] of iodinated contrast material. Contiguous axial images were obtained from the base of the skull to the vertex. Coronal and sagittal reformatted images were also reviewed. One of these 3D techniques was utilized: Maximum Intensity Pixel (MIP), 3D Reconstructed Images, Volume Rendered Images, Surface Shaded Rendering. One of the following dose reduction techniques was utilized for this exam. Automated exposure control, adjustment of the mA and/or kV according to patient size, and use of iterative reconstruction. COMPARISON: 08/07/2024. FINDINGS: Intracranial Arteries: The right internal carotid artery at ist cavernous segment shows a psoterior wall calcific plaques causing less than 50% stensos. The rest of intracranial arteries, including the anterior cerebral arteries, middle cerebral arteries, posterior cerebral arteries, basilar artery, and vertebral arteries, are all patent without evidence of significant stenosis, aneurysm, or dissection. There is no evidence of vascular malformations. [place]: The [place] is intact with no anatomical variations or abnormalities noted. All segments are well-visualized and normal in appearance. Venous System: The visualized portions of the venous system, including the dural venous sinuses, are patent with no evidence of thrombosis. Brain Parenchyma: The brain parenchyma shows no evidence of acute infarct, hemorrhage, or mass effect. The ventricles and sulci are normal in size and configuration. Bones: The bony structures of the skull are intact without evidence of fracture or destructive lesions. Soft Tissues: The visualized soft tissues of the head are unremarkable. Additional Findings: Right mastoid air cell effusion. IMPRESSION: No evidence of significant vascular abnormalities, acute infarct, or hemorrhage. Right Internal carotid segment cavernous segment calcific plaque showing less than 50% stenosis, otherwise rest of intracranial arteries are patent. Right mastoid air cell minimal effusion. No significant interval changes. The report was ready at 1:58 AM DIRECTOR WORK, 11/02/2024 and the call was completed at 02:00 AM DIRECTOR WORK, 11/02/2024 at [phone] Monge was informed regarding the negative stroke results. Electronically signed by Eduardo Green 11-02-2024 03:02 AM
--- NOTE | 2024-11-02 03:05 | CT Scan Report ---
EXAM: CT head/brain wo con CLINICAL HISTORY: neuro deficit, acute stroke suspected TECHNIQUE: Axial non-contrast CT scan of the brain was performed from the skull base to the high parietal region. One of the following dose reduction techniques were utilized for this exam: Automated exposure control, adjustment of the mA and/or kV according to patient size, use of iterative reconstruction. DLP: 1783.51 mGy.cm COMPARISON: CT 08/07/2024 09:38:15 [facility] BACK TENDER FINDINGS: Brain Parenchyma: Normal attenuation of the cerebral hemispheres, cerebellum, and brainstem. No evidence of acute infarct, hemorrhage, or mass effect. No abnormal areas of hypo- or hyperattenuation. Ventricular System: Ventricles are normal in size and configuration. No evidence of hydrocephalus or ventricular enlargement. Subarachnoid Spaces: Normal sulci and cisterns. No evidence of subarachnoid hemorrhage or extra-axial fluid collections. Cerebellum and Brainstem: No masses, lesions, or areas of abnormal density. Orbits: Normal appearance of the globes, optic nerves, and extraocular muscles. No evidence of orbital masses or abnormal density. Sinuses: Clear paranasal sinuses. No evidence of sinusitis or mucosal thickening. Mastoid Air Cells: Right chronic mastoiditis noted. Skull: Normal skull morphology. IMPRESSION: 1. No acute brain insult noted. 2. MRI (DWI and ADC) correlation is advised if clinically warranted. 3. Stable right chronic mastoiditis noted. 4. No interval time changes. The report was ready at 1:58 AM [facility], 11/02/2024 and the call was completed at 02:00 AM [facility], 11/02/2024 at [phone] Monge was informed regarding the negative stroke results. Electronically signed by Eduardo Green 11-02-2024 03:05 AM
--- NOTE | 2024-11-02 03:10 | CT Scan Report ---
EXAM: CT angio neck with con CLINICAL HISTORY: neuro deficit, acute stroke suspected TECHNIQUE: CT angiography of the head and neck was performed following the intravenous administration of iodinated contrast material. Axial images were obtained from the aortic arch to the vertex. Coronal and sagittal reformatted images were also reviewed. One of the following dose reduction techniques was utilized for this exam. Automated exposure control, adjustment of the mA and/or kV according to patient size, and use of iterative reconstruction. One of these 3D techniques was utilized: Maximum Intensity Pixel (MIP), 3D Reconstructed Images, Volume Rendered Images, Surface Shaded Rendering. DLP: 1783.51 mGy.cm COMPARISON: No previous studies are available for comparison. FINDINGS: Carotid Arteries: Both common carotid arteries are showing abnormal retropharyngeal location along their whole course, which cause compression to the pharynx and hypopharynx. Calcified atherosclerotic plaques are seen at both carotid bulbs with no hemodynamically signifcant stenosis ( stenosis less than 50%). another calcified plaque is seen at the cavernous segment of the right internal carotid artery with no hemodynamically stenosis. The common, internal, and external carotid arteries are patent bilaterally with no evidence of significant stenosis, aneurysm, or dissection. Vertebral Arteries: The vertebral arteries are patent bilaterally with no evidence of significant stenosis, aneurysm, or dissection. Dominant right vertebral artery. Thyroid Gland: The thyroid gland is normal in size and appearance with no focal lesions. Lymph Nodes: few bilateral cervical lymoh nodes of non specific nature, Soft Tissues: The soft tissues of the neck are unremarkable with no evidence of masses or abnormal collections. Additional Findings: trace of fluid at right mastoid air cells Suspicious mucosal thickening of the hypopahrynx noted, which might be due to compresison. IMPRESSION: 1. Retropharyngeal course of both common carotid arteries. 2. Mild atherosclerotic changes of both common carotid and right carotid arteries as detailed above with no hemodynamically significant stenosis. 3. No significant stenosis or occlusion. The report was ready at 1:58 AM CONFERENCE CENTER MANAGER, 11/02/2024 and the call was completed at 02:00 AM CONFERENCE CENTER MANAGER, 11/02/2024 at [phone] Monge was informed regarding the negative stroke results. Electronically signed by Eduardo Green 11-02-2024 03:10 AM
--- NOTE | 2024-11-02 03:25 | CT Scan Report ---
EXAM: CT cervical spine wo con CLINICAL HISTORY: [place] TECHNIQUE: CT scan of the cervical spine was performed without the administration of intravenous contrast. Contiguous axial images were obtained from the skull base to the upper thoracic spine. Coronal and sagittal reformatted images were also reviewed. One of the following dose reduction techniques was utilized for this exam. Automated exposure control, adjustment of the mA and/or kV according to patient size, and use of iterative reconstruction. (CTDI: 36.79 mGy, DLP: 1783.51 mGy*cm) COMPARISON: No previous studies are available for comparison. FINDINGS: Vertebrae: Lost cervical lordosis suggests neck muscle spasm. The vertebral bodies are normal in height and alignment. No evidence of acute fracture or dislocation. The cortical and trabecular bone patterns are normal. No signs of lytic or sclerotic lesions. Normal configuration of the posterior elements. Intervertebral Discs: The intervertebral disc spaces are preserved. No evidence of significant disc bulging or herniation. No calcifications or ossifications noted within the discs. Facet Joints: The facet joints are showing advanced degenerative changes, more evident at the right C2-C3 level. No evidence of dislocation, subluxation. Neural Foramina: The neural foramina are patent bilaterally at all levels. No evidence of foraminal narrowing. Prevertebral Soft Tissues: The prevertebral soft tissues are normal in thickness without evidence of mass or abnormal fluid collection. IMPRESSION: 1. No evidence of acute fracture or dislocation 2. Lost cervical lordosis suggests neck muscle spasm. 3. The facet joints are showing advanced degenerative changes, more evident at the right C2-C3 level. 4. MRI cervical spine is advised if clinically indicated. Electronically signed by Eduardo Green 11-02-2024 03:24 AM
--- NOTE | 2024-11-02 04:34 | History & Physical Report ---
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 Symptoms began about 8pm this evening. He was sitting in the chair watching TV when the symptoms began. He fell at home prior to coming to [facility] due to the left sided weakness, hitting the left side of his head. No injuries from the fall. All symptoms have improved since arrival to the ER. #left-sided weakness, dysarthria, multiple TIA/CVA risk factors - -fortunately all symptoms and signs have improved since hospital arrival -patient NOT a lytic candidate for possible stroke due to systemic anticoagulation with coumadin -at minimum likely has had a TIA -unfortunately we are unable to obtain an MRI brain as the 3T MRI machine is not compatible with the pt's IVC filter -thus, we may not be able to tell him if this was a bonafide CVA or simply a TIA -could consider repeat head CT later today to check for any changes -will obtain neurology consult for their opinion re: antiplatelets -patient was taking aspirin 81mg daily in addition to his coumadin -if this was a thrombotic event change aspirin to plavix? -patient just had lipids checked within the last few weeks and LDL was very low on max doses of lipitor -patient just had hemoglobin a1c checked within the last few weeks thus defer -neuro checks, telemetry -PT, OT, dysphagia screen, speech eval -echo -allow permissive HTN for ~24 hours #mild hyperkalemia with K of 5.2 - -provide 1 dose of patiromer after his dysphagia screen is performed -lisinopril use in the setting of CKD likely to blame -looking at his previous K levels they have all been top-normal or mildly elevated -consider stopping CARLOS given his tendencies towards mild hyperkalemia #h/o DVT/PE on chronic coumadin - -INR 2.2 today -daily INR while here -cont home coumadin dosing #T2DM - -check BSGs ac/hs -novolog SSI; add basal insulin if necessary -last hemoglobin a1c 7.6% in early October; defer recheck -hold metformin -hold januvia #HTN - -allow permissiveness in BPs for the next 24 hours -hold lisinopril -cont metoprolol #Hyperlipidemia - -lipid profile checked on 10/18/24 - -LDL 37, HDL 29, triglycerides 241 -continue high-intensity statin along with zetia #CKD stage 3a - -baseline Cr 1.6 to 1.9 -Cr today 1.8 #hypothyroidism - -TSH 1.4 about 2 weeks ago -cont synthroid #CAD with prior DE - -cont statin with zetia -cont aspirin (unless neurology advises changing aspirin to plavix) -cont cont metoprolol #morbid obesity, BMI 44 #fall with mild head injury - -fortunately no fracture or ICH seen on head CT #GERD - -cont PPI #DVT Proph - -coumadin pt's updated at bedside during the admissions process History of Present Illness Chief Complaint: left-sided weakness Primary Care Provider: Don Verma, III, AUTOMOTIVE ARTIST 69yo right-handed male with history of DVT/PE with IVC filter & chronic coumadin use, CAD s/p DE in 1994, morbid obesity, T2DM, hyperlipidemia, CKD stage 3, HTN, and hypothyroidism who presents from home with the acute onset of left-sided weakness, minimal numbness left hand/foot/tongue, and slurred speech. Symptoms began about 8pm this evening. He was sitting in the chair watching TV when the symptoms began. He continued to watch TV, and when he got out of his chair to get ready for bed he had a fall to his left side due to the left leg being weak. He hit the left side of his head slightly during the fall. No loss of consciousness. Did not have any chest pain during the events of the night. He does have mild dyspnea intermittently and has had such tonight. Denies any visual change or acute vertigo this evening. Upon arrival to [facility] he was triaged as a stroke alert. Although he was in the window for lytic therapy he is on chronic coumadin (INR >2 today) and thus lytics were contraindicated. Since arrival to [facility] his speech has improved, and the numbness of the left hand/foot has resolved. His weakness in the left arm & leg is significantly improved although not back to baseline. He has not tried to swallow anything since arrival to the ER. Allergies Allergy/AdvReac Type Severity Reaction Status Date / Time No Known Drug Allergies Allergy Verified 10/21/24 09:49 Home Medications Medication Instructions Recorded Confirmed Type aspirin 81 mg tablet 81 mg PO DAILY 02/17/19 11/02/24 History mecobalamin (vitamin B12) 1,000 1,000 mcg PO DAILY 10/23/21 11/02/24 History mcg chewable tablet cholecalciferol (vitamin D3) 25 2,000 unit PO DAILY 04/21/23 11/02/24 History mcg (1,000 unit) capsule albuterol sulfate 90 mcg/actuation 1 inh inhalation QID PRN shortness 09/10/23 11/02/24 Rx aerosol inhaler of breath or wheezing #6.7 grams pantoprazole 40 mg tablet,delayed 40 mg PO DAILY #90 tabs 01/19/24 11/02/24 Rx release ezetimibe 10 mg tablet 10 mg PO DAILY #90 tabs 05/13/24 11/02/24 Rx metformin 1,000 mg tablet 1,000 mg PO BID #180 tabs 05/13/24 11/02/24 Rx sitagliptin phosphate 50 mg tablet 50 mg PO DAILY #90 tabs 05/13/24 11/02/24 Rx (Januvia) calcitriol 0.25 mcg capsule 0.25 mcg PO .COMPLEX #36 caps 05/19/24 11/02/24 Rx allopurinol 100 mg tablet 100 mg PO DAILY #90 tabs 06/07/24 11/02/24 Rx magnesium glycinate 100 mg (as 100 mg PO BID 08/12/24 11/02/24 History glycinate) tablet warfarin 6 mg tablet See Rx Instructions PO .COMPLEX 08/12/24 11/02/24 History metoprolol tartrate 25 mg tablet 25 mg PO BID #180 tabs 08/16/24 11/02/24 Rx atorvastatin 80 mg tablet 80 mg PO DAILY #90 tabs 09/06/24 11/02/24 Rx lisinopril 10 mg tablet 10 mg PO HS #90 tabs 10/21/24 11/02/24 Rx levothyroxine 100 mcg tablet 100 mcg PO DAILY 11/02/24 11/02/24 History Past Med/Surg History Problem List (Updated 11/02/24 @ 05:11 by Damaso Acosta MD) Acquired hypothyroidism Dysarthria Left-sided weakness CVA (cerebral vascular accident) (Acute) Hypocalcemia (Chronic) Hypophosphatemia (Chronic) Medical History (Updated 11/02/24 @ 05:11 by Damaso Acosta MD) Hx of deep venous thrombosis Obesity Gout Vitamin B12 deficiency Subclinical hypothyroidism Vitamin D deficiency Chronic anticoagulation Acquired lymphedema Coronary artery arteriosclerosis Depression Diabetes mellitus Chronic gastroesophageal reflux disease Hypercholesterolemia Benign essential hypertension Secondary hyperparathyroidism (of renal origin) Sleep apnea Stage III chronic kidney disease History of pulmonary embolism Rotator cuff dis NEC Alleene filter in place Former smoker History of gout Surgical History History of root canal procedure History of rotator cuff surgery right History of back surgery History of carpal tunnel surgery of right wrist Family History (Updated 11/02/24 @ 05:07 by Damaso Acosta MD) Father S/P CABG x 3 Coronary heart disease Grandmother (Maternal) Stroke Myocardial infarction Grandfather (Maternal) No problems noted. Grandfather (Paternal) Prostate cancer Coronary heart disease Mother , age 60 during carotid artery surgery Stroke Carotid artery stenosis Other Heart disease Hypertension Denies family history of Ovarian cancer Breast cancer Colorectal cancer Social History (Updated 11/02/24 @ 05:08 by Damaso Acosta MD) Smoking Status: Former smoker Tobacco Type: Cigarettes Age Started Using Tobacco: 18; Age Quit Using Tobacco: 40; packs per day: 0.5; Smoking End Date: 1994; Second Hand Exposure: No; Do You Dip or Chew Tobacco: No; Hx Alcohol Use: Yes Alcohol type: beer Alcohol Intake Frequency: Monthly or Less Hx Substance Use: No Preferred Language: Vietnamese Communication Ability: Effective Visual Impairment: No Limitations Hearing Ability: Normal Flash Designer Required: No Beliefs That Will Affect Care: None marital status: Current Living Situation: Spouse current occupational status: retired current occupation: [employer], [employer] How many Children do You have: 2 Feels Safe at Home: Yes Safety Concerns: Feels Safe At This Time Childhood Exposure to Second-Hand Smoke: Yes Diet: regular Dental Care, Regularly: Yes Physical Activity Frequency: Does not Exercise Seatbelt Use: always Sunscreen Use: Yes Assistive Devices: Glasses Review of Systems Review of Systems: gen - no recent fevers, chills, infections, or loss of appetite eyes - no visual loss during today's episode of weakness HENT - no URI symptoms CV - no chest pain pulm - mild dyspnea at times; had some tonight, and gets it with activity at home GI - no vomiting, no diarrhea, no blood in stool - no dysuria neuro - has had dizziness as well as vertigo for weeks/months, saw PCP for this; taking meclizine prn; also had low BP in the office recently (10/21/24) - lisinopril reduced from BID to Qdaily dosing; left-sided weakness & numbness starting at 8pm last night skin - no rash endo - endorses diabetes musculo - no pain in any specific location today Physical Exam Physical Exam: gen - NAD, resting comfortably in bed, mildly slurred speech, occasionally takes him a moment or two to answer a question face - no droop eyes - PERRL, EOMI, no nystagmus HENT - MMM, no lesions neck - no carotid bruits, no JVD, no goiter heart - RRR, s1 s2, no murmur lungs - faint end-exp wheeze scattered, good airation, no edema abd - soft NT ND BS+, no HSM neuro - mildly dysarthric speech; CN 3-12 intact; irxois-utxa-dklzst maneuver with weakness performing it on left but no true ataxia; no pronator drift; rapid fine movements of left hand mildly impaired; strength LUE, LLE - all muscle groups tested about 4/5; 5/5 RUE/RLE strength; sensation intact all dermatomes x 4 exts; gait not tested; DTRs 2+ b/l upper & lower exts skin - no rash ext - <1+ edema b/l, pulses b/l feet 2+ psych - a/o x 3 Results & Data Results & Data Vital Signs (Past 12 Hours) Vital Signs Temp Pulse Pulse Resp BP BP Pulse Ox 11/02/24 02:25 76 22 162/78 H 95 11/02/24 01:59 72 11/02/24 01:49 36.3 C L 71 18 192/86 H 96 O2 Del Method 11/02/24 02:25 Room Air 11/02/24 01:59 11/02/24 01:49 Room Air Laboratory Results Laboratory Results - last 24 hr 11/02/24 11/02/24 11/02/24 02:02 02:03 02:20 WBC 8.52 RBC 4.23 L Hgb 11.3 L POC Hgb 12.2 L Hct 37.6 L POC Hct 36 L MCV 88.9 MCH 26.7 MCHC 30.1 L RDW Std Deviation 53.7 H RDW Coeff of Brian 16.6 H Plt Count 235 MPV 9.7 Immature Gran % (Auto) 0.4 Neut % (Auto) 47.3 Lymph % (Auto) 38.8 Ingham % (Auto) 6.2 Eos % (Auto) 6.5 Baso % (Auto) 0.8 Neut # (Auto) 4.03 Lymph # (Auto) 3.31 Ingham # (Auto) 0.53 Eos # (Auto) 0.55 H Baso # (Auto) 0.07 Immature Gran # (Auto) 0.03 PT 22.2 H INR 2.2 H APTT 30 PTT Ratio 1.1 POC Sodium 142 Sodium 140 POC Potassium 5.3 H Potassium 5.2 H POC Chloride 112 Chloride 111 H Carbon Dioxide 21 POC Total CO2 19 L Anion Gap 8 POC Anion Gap 17.0 POC BUN 25 H BUN 27 H Creatinine 1.86 H POC Creatinine 1.9 H Est Cr Clr Drug Dosing 52.7 eGFR 38.69 BUN/Creatinine Ratio 14.5 Glucose 127 H POC Glucose POC Glucose (other) 127 H Calcium 8.9 POC Ioniz Calcium Rufina 1.23 Magnesium 1.8 Total Bilirubin 0.5 AST 15 ALT 13 Alkaline Phosphatase 101 Troponin I High Sens 5.8 Total Protein 6.7 Albumin 3.7 Globulin 3.0 Albumin/Globulin Ratio 1.2 Blood Type A Positive Antibody Screen NEGATIVE Diagnostic Findings Cervical Spine CT 11/02/24 02:02 EXAM: CT cervical spine wo con CLINICAL HISTORY: [place] TECHNIQUE: CT scan of the cervical spine was performed without the administration of intravenous contrast. Contiguous axial images were obtained from the skull base to the upper thoracic spine. Coronal and sagittal reformatted images were also reviewed. One of the following dose reduction techniques was utilized for this exam. Automated exposure control, adjustment of the mA and/or kV according to patient size, and use of iterative reconstruction. (CTDI: 36.79 mGy, DLP: 1783.51 mGy*cm) COMPARISON: No previous studies are available for comparison. FINDINGS: Vertebrae: Lost cervical lordosis suggests neck muscle spasm. The vertebral bodies are normal in height and alignment. No evidence of acute fracture or dislocation. The cortical and trabecular bone patterns are normal. No signs of lytic or sclerotic lesions. Normal configuration of the posterior elements. Intervertebral Discs: The intervertebral disc spaces are preserved. No evidence of significant disc bulging or herniation. No calcifications or ossifications noted within the discs. Facet Joints: The facet joints are showing advanced degenerative changes, more evident at the right C2-C3 level. No evidence of dislocation, subluxation. Neural Foramina: The neural foramina are patent bilaterally at all levels. No evidence of foraminal narrowing. Prevertebral Soft Tissues: The prevertebral soft tissues are normal in thickness without evidence of mass or abnormal fluid collection. IMPRESSION: 1. No evidence of acute fracture or dislocation 2. Lost cervical lordosis suggests neck muscle spasm. 3. The facet joints are showing advanced degenerative changes, more evident at the right C2-C3 level. 4. MRI cervical spine is advised if clinically indicated. Electronically signed by Eduardo Green 11-02-2024 03:[address] 11/02/24 02:02 EXAM: CT head/brain wo con CLINICAL HISTORY: neuro deficit, acute stroke suspected TECHNIQUE: Axial non-contrast CT scan of the brain was performed from the skull base to the high parietal region. One of the following dose reduction techniques were utilized for this exam: Automated exposure control, adjustment of the mA and/or kV according to patient size, use of iterative reconstruction. 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 No evidence of acute infarct, hemorrhage, or mass effect. No abnormal areas of hypo- or hyperattenuation. Ventricular System: Ventricles are normal in size and configuration. No evidence of hydrocephalus or ventricular enlargement. Subarachnoid Spaces: Normal sulci and cisterns. No evidence of subarachnoid hemorrhage or extra-axial fluid collections. Cerebellum and Brainstem: No masses, lesions, or areas of abnormal density. Orbits: Normal appearance of the globes, optic nerves, and extraocular muscles. No evidence of orbital masses or abnormal density. Sinuses: Clear paranasal sinuses. No evidence of sinusitis or mucosal thickening. Mastoid Air Cells: Right chronic mastoiditis noted. Skull: Normal skull morphology. IMPRESSION: 1. No acute brain insult noted. 2. MRI (DWI and ADC) correlation is advised if clinically warranted. 3. Stable right chronic mastoiditis noted. 4. No interval time changes. The report was ready at 1:58 AM [facility], 11/02/2024 and the call was completed at 02:00 AM [facility], 11/02/2024 at [phone] Monge was informed regarding the negative stroke results. Electronically signed by Eduardo Green 11-02-2024 03:05 AM Head CTA 11/02/24 02:02 EXAM: CT angio head w con CLINICAL HISTORY: neuro deficit, acute stroke suspected TECHNIQUE: CT angiography of the head was performed following the intravenous administration of [specify contrast agent and amount] of iodinated contrast material. Contiguous axial images were obtained from the base of the skull to the vertex. Coronal and sagittal reformatted images were also reviewed. One of these 3D techniques was utilized: Maximum Intensity Pixel (MIP), 3D Reconstructed Images, Volume Rendered Images, Surface Shaded Rendering. One of the following dose reduction techniques was utilized for this exam. Automated exposure control, adjustment of the mA and/or kV according to patient size, and use of iterative reconstruction. COMPARISON: 08/07/2024. FINDINGS: Intracranial Arteries: The right internal carotid artery at ist cavernous segment shows a psoterior wall calcific plaques causing less than 50% stensos. The rest of intracranial arteries, including the anterior cerebral arteries, middle cerebral arteries, posterior cerebral arteries, basilar artery, and vertebral arteries, are all patent without evidence of significant stenosis, aneurysm, or dissection. There is no evidence of vascular malformations. Hopkins of Best: The Hopkins of Best is intact with no anatomical variations or abnormalities noted. All segments are well-visualized and normal in appearance. Venous System: The visualized portions of the venous system, including the dural venous sinuses, are patent with no evidence of thrombosis. Brain Parenchyma: The brain parenchyma shows no evidence of acute infarct, hemorrhage, or mass effect. The ventricles and sulci are normal in size and configuration. Bones: The bony structures of the skull are intact without evidence of fracture or destructive lesions. Soft Tissues: The visualized soft tissues of the head are unremarkable. Additional Findings: Right mastoid air cell effusion. IMPRESSION: No evidence of significant vascular abnormalities, acute infarct, or hemorrhage. Right Internal carotid segment cavernous segment calcific plaque showing less than 50% stenosis, otherwise rest of intracranial arteries are patent. Right mastoid air cell minimal effusion. No significant interval changes. The report was ready at 1:58 AM [facility], 11/02/2024 and the call was completed at 02:00 AM [facility], 11/02/2024 at [phone] Monge was informed regarding the negative stroke results. Electronically signed by Eduardo Green 11-02-2024 03:02 AM Neck CTA 11/02/24 02:02 EXAM: CT angio neck with con CLINICAL HISTORY: neuro deficit, acute stroke suspected TECHNIQUE: CT angiography of the head and neck was performed following the intravenous administration of iodinated contrast material. Axial images were obtained from the aortic arch to the vertex. Coronal and sagittal reformatted images were also reviewed. One of the following dose reduction techniques was utilized for this exam. Automated exposure control, adjustment of the mA and/or kV according to patient size, and use of iterative reconstruction. One of these 3D techniques was utilized: Maximum Intensity Pixel (MIP), 3D Reconstructed Images, Volume Rendered Images, Surface Shaded Rendering. DLP: 1783.51 mGy.cm COMPARISON: No previous studies are available for comparison. FINDINGS: Carotid Arteries: Both common carotid arteries are showing abnormal retropharyngeal location along their whole course, which cause compression to the pharynx and hypopharynx. Calcified atherosclerotic plaques are seen at both carotid bulbs with no hemodynamically signifcant stenosis ( stenosis less than 50%). another calcified plaque is seen at the cavernous segment of the right internal carotid artery with no hemodynamically stenosis. The common, internal, and external carotid arteries are patent bilaterally with no evidence of significant stenosis, aneurysm, or dissection. Vertebral Arteries: The vertebral arteries are patent bilaterally with no evidence of significant stenosis, aneurysm, or dissection. Dominant right vertebral artery. Thyroid Gland: The thyroid gland is normal in size and appearance with no focal lesions. Lymph Nodes: few bilateral cervical lymoh nodes of non specific nature, Soft Tissues: The soft tissues of the neck are unremarkable with no evidence of masses or abnormal collections. Additional Findings: trace of fluid at right mastoid air cells Suspicious mucosal thickening of the hypopahrynx noted, which might be due to compresison. IMPRESSION: 1. Retropharyngeal course of both common carotid arteries. 2. Mild atherosclerotic changes of both common carotid and right carotid arteries as detailed above with no hemodynamically significant stenosis. 3. No significant stenosis or occlusion. The report was ready at 1:58 AM [facility], 11/02/2024 and the call was completed at 02:00 AM [facility], 11/02/2024 at [phone] Monge was informed regarding the negative stroke results. Electronically signed by Eduardo Green 11-02-2024 03:10 AM EKG - my reading - NSR, poor R wave progression anterior leads, no ST changes Code Status & VTE Plan Code Status full code VTE Prophylaxis Plan VTE Prophylaxis will be ordered: Yes PG Care Time/CCT Total # of Minutes Spent Total Time Spent with Patient: Total time spent is greater than 50% in coordination of care (as documented) at patient's floor/unit and/or counseling patient: Coding Level of Care Code 24377 INT INP/OBS CARE 3/75MIN Diagnoses Left-sided weakness R53.1 Dysarthria R47.1 Chronic anticoagulation Z79.01 History of pulmonary embolism Z86.[address] Z95.828 Hx of deep venous thrombosis Z86.718 Coronary artery arteriosclerosis I25.10 Type 2 diabetes mellitus with diabetic nephropathy, without long-term current use of insulin E11.21 Diabetes mellitus complication detail: with nephropathy Diabetes mellitus complication status: with kidney complications Diabetes mellitus skilled nursing insulin use: without pipe caulker use Diabetes mellitus type: type 2 Chronic gastroesophageal reflux disease K21.9 Hypercholesterolemia E78.00 Benign essential hypertension I10 Stage 3b chronic kidney disease N18.32 Chronic kidney disease stage 3 subtype: stage 3b (GFR 30-44) Acquired hypothyroidism E03.9 (8) Diabetes mellitus Diabetes mellitus complication detail: with nephropathy Diabetes mellitus complication status: with kidney complications Diabetes mellitus pipe caulker insulin use: without pipe caulker use Diabetes mellitus type: type 2 Qualified Code(s): E11.21 - Type 2 diabetes mellitus with diabetic nephropathy (12) Stage III chronic kidney disease Chronic kidney disease stage 3 subtype: stage 3b (GFR 30-44) Qualified Code(s): N18.32 - Chronic kidney disease, stage 3b
[2024-11-02] MEDS ORDERED: PHARMACIST DISCHARGE MED REC CONSULT PRN (06:01)
[2024-11-02] MEDS ORDERED: WARFARIN SOD 6 MG TAB PO SCH (06:01)
[2024-11-02] MEDS ORDERED: NITROGLYCERIN SL 0.4 MG/TAB TAB SL PRN (06:01)
[2024-11-02] MEDS ORDERED: MELATONIN 3 MG TAB PO PRN (06:01)
[2024-11-02] MEDS ORDERED: ONDANSETRON INJ 2 MG/ML 2 ML VIAL IV PRN (06:01)
[2024-11-02] MEDS ORDERED: ALBUTEROL HFA 8 GM INHALER INH PRN (06:01)
[2024-11-02] MEDS ORDERED: CARBOHYDRATES FOR HYPOGLYCEMIA PO PRN (06:15)
[2024-11-02] MEDS ORDERED: GLUCAGON FOR INJ 1 MG VIAL SQ PRN (06:15)
[2024-11-02] MEDS ORDERED: GLUCOSE 10 TAB/TUBE PO PRN (06:15)
[2024-11-02] MEDS ORDERED: GLUCOSE 40% GEL 15 GM TUBE PO PRN (06:15)
[2024-11-02] MEDS ORDERED: DEXTROSE 50% 50 ML SYRINGE IV PRN (06:15)
[2024-11-02] MEDS: LEVOTHYROXINE SODIUM 100 MCG TABLET PO SCH (06:36)
--- NOTE | 2024-11-02 07:24 | XRay Report ---
EXAM: XR chest 1V portable CLINICAL HISTORY: dyspnea TECHNIQUE: An X-ray image of the chest is obtained in 1 AP projection. COMPARISON: No prior studies are available for comparison. FINDINGS: Pulmonary Parenchyma: Lungs are clear bilaterally. No evidence of consolidation, collapse, or focal opacities. No pulmonary nodules are identified. No evidence of pleural effusion or pleural thickening. Heart and Mediastinum: Heart size and shape are normal. No mediastinal widening or masses. No hilar or mediastinal lymphadenopathy. Bony Thorax: Bony thorax appears intact without fractures or deformities. Soft Tissues: Soft tissues overlying the chest wall are unremarkable. IMPRESSION: No acute cardiopulmonary abnormalities are identified. Electronically signed by Eduardo Green 11-02-2024 07:23 AM
[2024-11-02] MEDS: METOPROLOL TARTRATE 25 MG TAB PO SCH (08:38)
[2024-11-02] MEDS: ASPIRIN 81 MG ECTAB PO SCH (08:38)
[2024-11-02] MEDS: allopurinoL 100 MG TAB PO SCH (08:38)
[2024-11-02] MEDS: EZETIMIBE 10 MG TAB PO SCH (08:38)
[2024-11-02] MEDS: CYANOCOBALAMIN (B-12) 500 MCG TABLET PO SCH (08:38)
[2024-11-02] MEDS: ATORVASTATIN 40 MG TAB PO SCH (08:38)
[2024-11-02] MEDS: CHOLECALCIFEROL 25 MCG (1000 UNITS) TAB PO SCH (08:39)
[2024-11-02] MEDS: PANTOprazole 40 MG TAB PO SCH (08:39)
[2024-11-02] MEDS: PATIROMER CALCIUM SORBITEX 8.4 GM PACK PO ONE (10:24)
[2024-11-02] MEDS: INSULIN ASPART PER UNIT CHARGE SC SCH (10:30)
--- NOTE | 2024-11-02 12:49 | Hospitalist Progress Note ---
Date of Service November 02, 2024 Assessment & Plan (1) CVA (cerebral vascular accident): Plan: He appears to have suffered an acute ischemic right-sided CVA with resultant mild distal aphasia and mild left hemiparesis and discoordination. Neurology consultation is pending. Unfortunately brain MRI scan cannot be obtained due to incompatible IVC filter. He is on Coumadin chronically and current INR is 2.2. Creatinine stable at 1.8 consistent with chronic kidney disease stage III. Lisinopril has been discontinued due to mild hyperkalemia. He has received 1 dose of patriomer. (2) Chronic anticoagulation: Plan: With Coumadin. INR is therapeutic at 2.2. (3) History of pulmonary embolism: Plan: Apparently this is why he is on chronic Coumadin therapy (4) Gunnar filter in place: Plan: Apparently there is MRI incompatibility. (5) Hx of deep venous thrombosis: Plan: Currently on chronic Coumadin therapy (6) Coronary artery arteriosclerosis: Plan: Stable. Continue current medical management (7) Diabetes mellitus: Plan: ADA diet. Sliding scale coverage if needed (8) Hypercholesterolemia: Plan: Statin therapy. (9) Benign essential hypertension: Plan: Allow permissive hypertension for the first 24 to 48 hours. Continue current medical management (10) Stage III chronic kidney disease: Plan: Monitor intake and output. Serial labs (11) Acquired hypothyroidism: Plan: Continue current thyroid replacement Plan Possible IPR rehab placement at discharge. To be determined Admission and Anticipated Discharge Date Admission Date: November 02, 2024 Subjective Alert and oriented. No distress. He appears to have suffered an ischemic right-sided CVA with resultant to mild dysarthria and left-sided discoordination and mild paresis. MRI scan cannot be done due to presence of incompatible IVC filter. Lisinopril has been discontinued due to mild hyperkalemia. 1 dose of Patry zan has been ordered. Neurology consultation is pending. OT and PT assessments pending Review of Systems 2 Review of Systems: Constitutionalno fever or chills ENTno blurred vision, no double vision, no epistaxis, no sore throat Respiratoryno cough, no wheezing, no shortness of breath Cardiacno palpitations, no chest pain, no syncope Kathia nausea, vomiting, diarrhea, melena, hematochezia GUno urinary retention, no urinary incontinence, no dysuria, no hematuria Musculoskeletalno joint pain, no muscle tenderness Skinno bruising, no rashes, no pruritus Neurohe has continued mild dysarthria. Mild left-sided weakness with discoordination. Psychno depression, no anxiety Physical Exam 2 Physical Exam: General-alert and oriented x3, no fever, no chills HEENT-head atraumatic and normocephalic, pupils equal and reactive to light, extraocular muscles intact Neck-no lymphadenopathy or thyromegaly, trachea midline Chest-clear to auscultation. No rales, wheezing or rhonchi Cardiac-regular rate and rhythm, normal S1 and S2 Abdomen-normal bowel sounds, no hepatosplenomegaly Extremities-no cyanosis, clubbing, or edema Neuro-mild dysarthria. Mild left-sided weakness and discoordination. Psych-normal affect, normal mood Results & Data Results & Data Vital Signs (Past 12 Hours) Vital Signs Temp Pulse Pulse Resp BP BP Pulse Ox 11/02/24 12:31 36.4 C L 66 18 162/89 H 96 11/02/24 08:00 36.6 C 67 18 175/82 H 97 11/02/24 07:00 67 11/02/24 05:40 36.5 C 63 16 158/86 H 96 11/02/24 05:32 74 20 145/95 H 95 11/02/24 04:06 71 22 11/02/24 02:25 76 22 162/78 H 95 11/02/24 02:21 162/78 H 11/02/24 01:59 72 11/02/24 01:49 36.3 C L 71 18 192/86 H 96 O2 Del Method 11/02/24 12:31 Room Air 11/02/24 08:00 Room Air 11/02/24 07:00 11/02/24 05:40 Room Air 11/02/24 05:32 Room Air 11/02/24 04:06 11/02/24 02:25 Room Air 11/02/24 02:21 11/02/24 01:59 11/02/24 01:49 Room Air Laboratory Results 11/02/24 02:02 11/02/24 02:02 PG Care Time/CCT Total # of Minutes Spent Total Time Spent with Patient: Total time spent is greater than 50% in coordination of care (as documented) at patient's floor/unit and/or counseling patient: Coding Level of Care Code 50189 SUB INP/OBS CARE 50MIN Diagnoses CVA (cerebral vascular accident) I63.9 Chronic anticoagulation Z79.01 History of pulmonary embolism Z86.[address] [place] [address] Z95.828 Hx of deep venous thrombosis Z86.718 Coronary artery arteriosclerosis I25.10 Type 2 diabetes mellitus with diabetic nephropathy, without long-term current use of insulin E11.21 Diabetes mellitus type: type 2 Diabetes mellitus half-way insulin use: without half-way use Diabetes mellitus complication status: with kidney complications Diabetes mellitus complication detail: with nephropathy Hypercholesterolemia E78.00 Benign essential hypertension I10 Stage 3b chronic kidney disease N18.32 Chronic kidney disease stage 3 subtype: stage 3b (GFR 30-44) Acquired hypothyroidism E03.9 (7) Diabetes mellitus Diabetes mellitus type: type 2 Diabetes mellitus buttermaker helper insulin use: w ithout buttermaker helper use Diabetes mellitus complication status: with kidney complications Diabetes mellitus complication detail: with nephropathy Qualified Code(s): E11.21 - Type 2 diabetes mellitus with diabetic nephropathy (10) Stage III chronic kidney disease Chronic kidney disease stage 3 subtype: stage 3b (GFR 30-44) Qualified Code(s): N18.32 - Chronic kidney disease, stage 3b
--- NOTE | 2024-11-02 17:31 | Neurology Consultation ---
Date of Consultation November 02, 2024 Assessment & Plan (1) CVA (cerebral vascular accident): Plan 69-year-old male presenting with acute onset left hemiparesis, face arm and leg, and associated dysarthria. He has most likely had a lacunar stroke within the right cerebral hemisphere, probably posterior limb of the internal capsule. A small ischemic pontine stroke could also be considered. He does not have any significant stenotic lesion within the cervical arteries. There is a 50% stenosis within the cavernous segment of the right internal carotid artery of unlikely clinical significance. Stroke risk factors for this patient include diabetes mellitus, hypertension, and dyslipidemia. He has a history of DVT, pulmonary embolism, and is on chronic warfarin therapy. He also takes daily low-dose aspirin and atorvastatin 80 mg/day. I would recommend switching from aspirin to clopidogrel 75 mg/day. Continue with warfarin. Continue management of hypertension per stroke protocol. Because we are unable to obtain an MRI given his Butler filter, would recommend a follow-up noncontrast CT of the head tomorrow morning to exclude any development of hemorrhage. Follow-up with echocardiogram results. Consultations with PT/OT/speech therapy. No further immediate recommendations, please call with any questions. History of Present Illness Reason for Consultation: Stroke Requesting Physician: Dave Attending Physician: Alber Calvin MD History of Present Illness The patient is a 69-year-old right-handed male with a history of DVT, pulmonary embolism, on long-term warfarin, diabetes mellitus, morbid obesity, presented to the emergency department overnight with acute onset left-sided weakness and slurred speech. His symptoms began around 8 PM and got progressively worse. He had difficulty standing and walking, lifting the left arm. A CT of the head was negative for hemorrhage or acute process. CTA of the head revealed a 50% stenosis within the cavernous segment of the right internal carotid artery. CTA of the neck revealed mild atherosclerotic change of both carotids, no significant stenosis. He is unable to have MRI given incompatibility with his Butler filter. He had a therapeutic pro time at presentation and was not an appropriate candidate for intravenous thrombolysis. He does report modest improvement in his symptoms but continues to have mild left-sided weakness and slurred speech. He denies headache, dizziness, or vision loss. He continues to have some difficulty when getting up and trying to stand or walk. Allergies Allergy/AdvReac Type Severity Reaction Status Date / Time No Known Drug Allergies Allergy Verified 10/21/24 09:49 Home Medications Medication Instructions Recorded Confirmed Type aspirin 81 mg tablet 81 mg PO DAILY 02/17/19 11/02/24 History mecobalamin (vitamin B12) 1,000 1,000 mcg PO DAILY 10/23/21 11/02/24 History mcg chewable tablet cholecalciferol (vitamin D3) 25 2,000 unit PO DAILY 04/21/23 11/02/24 History mcg (1,000 unit) capsule albuterol sulfate 90 mcg/actuation 1 inh inhalation QID PRN shortness 09/10/23 11/02/24 Rx aerosol inhaler of breath or wheezing #6.7 grams pantoprazole 40 mg tablet,delayed 40 mg PO DAILY #90 tabs 01/19/24 11/02/24 Rx release ezetimibe 10 mg tablet 10 mg PO DAILY #90 tabs 05/13/24 11/02/24 Rx metformin 1,000 mg tablet 1,000 mg PO BID #180 tabs 05/13/24 11/02/24 Rx sitagliptin phosphate 50 mg tablet 50 mg PO DAILY #90 tabs 05/13/24 11/02/24 Rx (Januvia) calcitriol 0.25 mcg capsule 0.25 mcg PO .COMPLEX #36 caps 05/19/24 11/02/24 Rx allopurinol 100 mg tablet 100 mg PO DAILY #90 tabs 06/07/24 11/02/24 Rx magnesium glycinate 100 mg (as 100 mg PO BID 08/12/24 11/02/24 History glycinate) tablet warfarin 6 mg tablet See Rx Instructions PO .COMPLEX 08/12/24 11/02/24 History metoprolol tartrate 25 mg tablet 25 mg PO BID #180 tabs 08/16/24 11/02/24 Rx atorvastatin 80 mg tablet 80 mg PO DAILY #90 tabs 09/06/24 11/02/24 Rx lisinopril 10 mg tablet 10 mg PO HS #90 tabs 10/21/24 11/02/24 Rx levothyroxine 100 mcg tablet 100 mcg PO DAILY 11/02/24 11/02/24 History Patient History Medical History (Updated 11/02/24 @ 12:45 by Alber Calvin MD) Hx of deep venous thrombosis Obesity Gout Vitamin B12 deficiency Subclinical hypothyroidism Vitamin D deficiency Chronic anticoagulation Acquired lymphedema Coronary artery arteriosclerosis Depression Diabetes mellitus Chronic gastroesophageal reflux disease Hypercholesterolemia Benign essential hypertension Secondary hyperparathyroidism (of renal origin) Sleep apnea Stage III chronic kidney disease History of pulmonary embolism Rotator cuff dis NEC [place] filter in place Former smoker History of gout Surgical History History of root canal procedure History of rotator cuff surgery right History of back surgery History of carpal tunnel surgery of right wrist Family History (Updated 11/02/24 @ 05:07 by Damaso Acosta MD) Father S/P CABG x 3 Coronary heart disease Grandmother (Maternal) Stroke Myocardial infarction Grandfather (Maternal) No problems noted. Grandfather (Paternal) Prostate cancer Coronary heart disease Mother , age 60 during carotid artery surgery Stroke Carotid artery stenosis Other Heart disease Hypertension Denies family history of Ovarian cancer Breast cancer Colorectal cancer Social History (Updated 11/02/24 @ 05:08 by Damaso Acosta MD) Smoking Status: Former smoker Tobacco Type: Cigarettes Age Started Using Tobacco: 18; Age Quit Using Tobacco: 40; packs per day: 0.5; Smoking End Date: 1994; Second Hand Exposure: No; Do You Dip or Chew Tobacco: No; Hx Alcohol Use: Yes Alcohol type: beer Alcohol Intake Frequency: Monthly or Less Hx Substance Use: No Preferred Language: Macedonian Communication Ability: Effective Visual Impairment: No Limitations Hearing Ability: Normal Credit Front Office Developer Required: No Beliefs That Will Affect Care: None marital status: Current Living Situation: Spouse current occupational status: 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, [employer] How many Children do You have: 2 Feels Safe at Home: Yes Safety Concerns: Feels Safe At This Time Childhood Exposure to Second-Hand Smoke: Yes Diet: regular Dental Care, Regularly: Yes Physical Activity Frequency: Does not Exercise Seatbelt Use: always Sunscreen Use: Yes Assistive Devices: Glasses Review of Systems Constitutional: no fever and no chills Eyes: no blind spots and no diplopia Ear, Nose, Mouth, Throat: no hearing loss Respiratory: no cough and no dyspnea Cardiovascular: no chest pain and no palpitations Gastrointestinal: no nausea and no vomiting Genitourinary: no dysuria Musculoskeletal: no myalgia Integumentary: no rash and no lesions Neurologic: as per Subjective / HPI Psychiatric: no depression and no anxiety Hematologic / Lymphatic: no easy bleeding and no easy bruising Exam (Neuro) Constitutional: well developed, well nourished and + obese; no acute distress Eyes: normal visual valdovinos by confrontation, PERRL and EOM intact bilaterally; no nystagmus Neurologic: Oriented to:: Person, Place and Time Memory: Short Term Intact and Remote Intact Attention: Span Intact and Concentration Intact Speech Fluency: Dysarthria Speech Aphasia: negative Aphasia Fund of Knowledge: Current Events, Past History and Vocabulary Cranial Nerves: Normal II, III, IV, , V, VIII, IX, X, XI and XII; Abnorm VII (Mild left facial droop noted) Motor Strength: Hemiparesis (Mild) Laterality: Left Motor Tone: Normal Lower Extremities and Normal Upper Extremities Muscle Bulk/Involuntary Movements: No Involuntary Movements; negative Muscle Atrophy Sensation: Light Touch Intact, Pain/Temperature Intact and Proprioception Intact Coordination: Finger-Nose Abnormal Laterality: Left and Heel-Jones Abnormal Laterality: Left Deep Tendon Reflexes: Rt Triceps: 1+, Lt Triceps: 1+, Rt Biceps: 1+, Lt Biceps: 1+, Rt Brachioradialis: 1+, Lt Brachioradialis: 1+, Rt Patellar: 1+, Lt Patellar: 1+, Rt Ankle: 0 and Lt Ankle: 0 Special Tests: negative Babinski Present Results & Data Vital Signs (Past 12 Hours) Vital Signs Temp Pulse Pulse Resp BP Pulse Ox O2 Del Method 11/02/24 15:53 36.4 C L 68 18 177/94 H 95 Room Air 11/02/24 14:02 69 11/02/24 12:31 36.4 C L 66 18 162/89 H 96 Room Air 11/02/24 08:00 36.6 C 67 18 175/82 H 97 Room Air 11/02/24 07:00 67 11/02/24 05:40 36.5 C 63 16 158/86 H 96 Room Air 11/02/24 05:32 74 20 145/95 H 95 Room Air Laboratory Results WBC 8.52, hemoglobin 11.3, hematocrit 37.6, platelet count 235, INR 2.2, sodium 140, potassium 5.2, BUN 27, creatinine 1.86, glucose 127, hemoglobin A1c 7.6, magnesium 1.8, AST 15, ALT 13, triglycerides 241, cholesterol 114, LDL 62, HDL 29 Diagnostic Findings An electrocardiogram revealed a normal sinus rhythm, 72 bpm Coding Level of Care Code 47863 INT INP/OBS CARE 75MIN Diagnoses CVA (cerebral vascular accident) I63.9 Time Spent (min) 75 Comment Total time includes patient contact, chart review, counseling, note preparation
[2024-11-02] MEDS: WARFARIN SOD 6 MG TAB PO SCH (17:39)
[2024-11-03] MEDS: ACETAMINOPHEN 325 MG TAB PO PRN (06:20)
[2024-11-03 07:26] LABS: Basophils # (auto) 0.05 K/uL (0.00-0.20); Basophils % (auto) 0.8 %; Eosinophils # (auto) 0.52 K/uL (0.00-0.50); Eosinophils % (auto) 7.8 %; Hematocrit (blood only) 34.4 % (42.0-52.0); Hemoglobin 10.5 g/dl (14.0-18.0); Immature Granulocytes # (auto) 0.02 K/uL (0.01-0.20); Immature Granulocytes % (auto) 0.3 %; Lymphocytes # (auto) 2.33 K/uL (1.20-3.40); Lymphocytes % (auto) 35.1 %; Mean Corpuscular Hemoglobin 26.8 pg (25.0-34.0); Mean Corpuscular Hgb Conc 30.5 g/dL (32.0-36.0); Mean Corpuscular Volume 87.8 fL (80.0-100.0); Mean Platelet Volume 10.1 fL (9.4-12.4); Monocytes # (auto) 0.41 K/uL (0.11-0.59); Monocytes % (auto) 6.2 %; Neutrophils # (auto) 3.31 K/uL (1.40-6.50); Neutrophils % (auto) 49.8 %; Platelet Count 208 K/uL (130-400); RDW Coefficient of Variation 16.6 % (11.5-14.5); RDW Standard Deviation 52.1 fL (36.4-46.3); Red Blood Count 3.92 M/uL (4.70-6.10); White Blood Count 6.64 K/ul (4.8-10.8)
[2024-11-03 07:49] LABS: BUN Creatinine Ratio 14.6 (10-20); Calcium 8.7 mg/dl (8.6-10.3); Creatinine Clr Calc Pharmacy 52.4 ml/min; Potassium 5.3 mmol/L (3.5-5.1)
[2024-11-03 07:58] LABS: INR 2.4 (0.9-1.1)
[2024-11-03] MEDS: CLOPIDOGREL BISULFATE 75 MG TAB PO SCH (08:14)
[2024-11-03] MEDS: CALCITRIOL 0.25 MCG CAPSULE PO SCH (08:14)
--- NOTE | 2024-11-03 09:07 | CT Scan Report ---
EXAM: CT head/brain wo con CLINICAL HISTORY: right CVA TECHNIQUE: Axial non-contrast CT scan of the brain was performed from the skull base to the high parietal region. One of the following dose reduction techniques were utilized for this exam: Automated exposure control, adjustment of the mA and/or kV according to patient size, use of iterative reconstruction. COMPARISON: Prior CT dated 11/02/2024 for comparison. FINDINGS: Brain Parenchyma: New finding of small faint 4mm hypodense focus in right thalamus Age related involutional changes. Normal attenuation of rest of cerebral hemispheres, cerebellum, and brainstem. Ventricular System: Ventricles are normal in size and configuration. No evidence of hydrocephalus or ventricular enlargement. Subarachnoid Spaces: Prominent sulci and cisterns. No evidence of subarachnoid hemorrhage or extra-axial fluid collections. Cerebellum and Brainstem: No masses, lesions, or areas of abnormal density. Orbits: Normal appearance of the globes, optic nerves, and extraocular muscles. No evidence of orbital masses or abnormal density. Sinuses: Clear paranasal sinuses. No evidence of sinusitis or mucosal thickening. Mastoid Air Cells: Stable right chronic mastoiditis. Skull: Normal skull morphology. IMPRESSION: 1. New finding of small faint 4mm hypodense focus in right thalamus, could be a recent lacunar infarct 2. Clincal correlation, and if needed, MRI with diffusion is advised 3. Age related involutional changes. Electronically signed by Eduardo Green 11-03-2024 09:07 AM
--- NOTE | 2024-11-03 09:18 | Cardiology Consultation ---
Date of Consultation November 03, 2024 Assessment & Plan (1) CVA (cerebral vascular accident): Plan 1. CVA: I believe his CVA is felt to be thrombotic and not embolic, if this is true then I agree with the recommendations to continue anticoagulation with Coumadin and add clopidogrel instead of aspirin. On the other hand if there is a possibility that it is embolic then I think it would be prudent to switch to one of the newer agents which are more effective than warfarin in all of the clinical trials that I am aware of (for embolic stroke). 2. Anticoagulation: He is currently on warfarin and was therapeutic on presentation, however he recalls the last two INR measurements before admission being less than 2. Given what I believe is less than ideal warfarin control (even though the patient feels it is good), I would favor switching to one of the newer agents regardless. History of Present Illness Reason for Consultation: CVA Attending Physician: Alber Calvin MD History of Present Illness This is a 69-year-old male followed by Dr. Rivera and with a history of hypertension, hyperlipidemia and anticoagulation due to recurrent DVT with pulmonary embolism. His anticoagulation is with warfarin. He also has a [place] filter in place. He does have coronary artery disease identified at catheterization April 1995 but did not require intervention. He presented to the emergency room on November 02, 2024 with strokelike symptoms, he was seen by neurology who felt that he had a CVA, however an MRI cannot be done due to his [place] filter which is not MRI compatible. It was recommended to continue with warfarin and to switch to clopidogrel from aspirin. I am not sure how well his INR is controlled, he was therapeutic on presentation here. He believes his INR is generally well-controlled but I discussed this with him specifically and he tells me that the 2 INR's prior to admission were both in the ones, but he also explained to me why they were low (having not taken Coumadin on each occasion). Allergies Allergy/AdvReac Type Severity Reaction Status Date / Time No Known Drug Allergies Allergy Verified 10/21/24 09:49 Home Medications Medication Instructions Recorded Confirmed Type aspirin 81 mg tablet 81 mg PO DAILY 02/17/19 11/02/24 History mecobalamin (vitamin B12) 1,000 1,000 mcg PO DAILY 10/23/21 11/02/24 History mcg chewable tablet cholecalciferol (vitamin D3) 25 2,000 unit PO DAILY 04/21/23 11/02/24 History mcg (1,000 unit) capsule albuterol sulfate 90 mcg/actuation 1 inh inhalation QID PRN shortness 09/10/23 11/02/24 Rx aerosol inhaler of breath or wheezing #6.7 grams pantoprazole 40 mg tablet,delayed 40 mg PO DAILY #90 tabs 01/19/24 11/02/24 Rx release ezetimibe 10 mg tablet 10 mg PO DAILY #90 tabs 05/13/24 11/02/24 Rx metformin 1,000 mg tablet 1,000 mg PO BID #180 tabs 05/13/24 11/02/24 Rx sitagliptin phosphate 50 mg tablet 50 mg PO DAILY #90 tabs 05/13/24 11/02/24 Rx (Januvia) calcitriol 0.25 mcg capsule 0.25 mcg PO .COMPLEX #36 caps 05/19/24 11/02/24 Rx allopurinol 100 mg tablet 100 mg PO DAILY #90 tabs 06/07/24 11/02/24 Rx magnesium glycinate 100 mg (as 100 mg PO BID 08/12/24 11/02/24 History glycinate) tablet warfarin 6 mg tablet See Rx Instructions PO .COMPLEX 08/12/24 11/02/24 History metoprolol tartrate 25 mg tablet 25 mg PO BID #180 tabs 08/16/24 11/02/24 Rx atorvastatin 80 mg tablet 80 mg PO DAILY #90 tabs 09/06/24 11/02/24 Rx lisinopril 10 mg tablet 10 mg PO HS #90 tabs 10/21/24 11/02/24 Rx levothyroxine 100 mcg tablet 100 mcg PO DAILY 11/02/24 11/02/24 History Patient History Medical History Hx of deep venous thrombosis Obesity Gout Vitamin B12 deficiency Subclinical hypothyroidism Vitamin D deficiency Chronic anticoagulation Acquired lymphedema Coronary artery arteriosclerosis Depression Diabetes mellitus Chronic gastroesophageal reflux disease Hypercholesterolemia Benign essential hypertension Secondary hyperparathyroidism (of renal origin) Sleep apnea Stage III chronic kidney disease History of pulmonary embolism Rotator cuff dis NEC [place] filter in place Former smoker History of gout Surgical History History of root canal procedure History of rotator cuff surgery right History of back surgery History of carpal tunnel surgery of right wrist Family History Father S/P CABG x 3 Coronary heart disease Grandmother (Maternal) Stroke Myocardial infarction Grandfather (Maternal) No problems noted. Grandfather (Paternal) Prostate cancer Coronary heart disease Mother , age 60 during carotid artery surgery Stroke Carotid artery stenosis Other Heart disease Hypertension Denies family history of Ovarian cancer Breast cancer Colorectal cancer Social History Smoking Status: Former smoker Tobacco Type: Cigarettes Age Started Using Tobacco: 18; Age Quit Using Tobacco: 40; packs per day: 0.5; Smoking End Date: 1994; Second Hand Exposure: No; Do You Dip or Chew Tobacco: No; Hx Alcohol Use: Yes Alcohol type: beer Alcohol Intake Frequency: Monthly or Less Hx Substance Use: No Preferred Language: Upper Sorbian Communication Ability: Effective Visual Impairment: No Limitations Hearing Ability: Normal [place] Nurse Required: No Beliefs That Will Affect Care: None marital status: Current Living Situation: Spouse current occupational status: retired current occupation: [employer] How many Children do You have: 2 Feels Safe at Home: Yes Safety Concerns: Feels Safe At This Time Childhood Exposure to Second-Hand Smoke: Yes Diet: regular Dental Care, Regularly: Yes Physical Activity Frequency: Does not Exercise Seatbelt Use: always Sunscreen Use: Yes Assistive Devices: Glasses Review of Systems Review of Systems: All systems reviewed & are unremarkable except as noted in HPI & below Physical Exam Physical Exam: Constitutional: Alert, cooperative and in no distress. He is getting ready to start PT. HEENT: Unremarkable Neck: No jugular venous distention, carotid pulses are normal and equal bilaterally without bruits. Pulmonary: Clear to auscultation bilaterally. Cardiac: Regular rhythm with no murmur, gallop or rub. Abdomen: Soft, nontender with normal bowel sounds. Extremities: No edema. Neurologic: No focal findings. Gait was not tested, he is ready to walk with a walker. Skin: No rash, ecchymoses or petechiae. Results & Data Vital Signs (Past 12 Hours) Vital Signs Temp Pulse Resp BP BP Pulse Ox O2 Del Method 11/03/24 07:33 36.6 C 68 18 145/80 H 94 Room Air 11/03/24 03:38 36.4 C L 67 18 153/72 H 95 Room Air 11/02/24 23:26 36.7 C 18 176/97 H 94 Room Air Laboratory Results Coagulation 11/03/24 Range/Units 06:38 PT 24.0 H (9.0-12.0) Seconds CBC 11/03/24 Range/Units 06:38 WBC 6.64 (4.8-10.8) K/ul RBC 3.92 L (4.70-6.10) M/uL Hgb 10.5 L (14.0-18.0) g/dl Hct 34.4 L (42.0-52.0) % Plt Count 208 (130-400) K/uL Neut # (Auto) 3.31 (1.40-6.50) K/uL Lymph # (Auto) 2.33 (1.20-3.40) K/uL Porter # (Auto) 0.41 (0.11-0.59) K/uL Eos # (Auto) 0.52 H (0.00-0.50) K/uL Baso # (Auto) 0.05 (0.00-0.20) K/uL Comprehensive Metabolic Panel 11/03/24 Range/Units 06:38 Sodium 142 (136-145) mmol/L Potassium 5.3 H (3.5-5.1) mmol/L Chloride 110 H (98-107) mmol/L Carbon Dioxide 24 (21-32) mmol/L BUN 27 H (6-23) mg/dl Creatinine 1.85 H (0.6-1.4) mg/dl Glucose 134 H (70-99(Fasting)) mg/dl Calcium 8.7 (8.6-10.3) mg/dl Intake and Output 11/02/24 11/03/24 11/03/24 22:59 06:59 14:59 Other: # Unmeasured Voids 2 1 Weight 136.4 kg Weight Measurement Method Built in [facility] Diagnostic Findings Telemetry: Sinus rhythm, rate 70 to 80 bpm. Echocardiogram: Pending. PG Care Time/CCT Total # of Minutes Spent Total Time Spent with Patient: Total time spent is greater than 50% in coordination of care (as documented) at patient's floor/unit and/or counseling patient: Coding Level of Care Code 69745 INT INP/OBS CARE MIN Diagnoses CVA (cerebral vascular accident) I63.9
--- NOTE | 2024-11-03 10:17 | Pharmacy Report ---
- Date of Service November 03, 2024 - Pharmacy CVA/TIA Medication Review Medications to Prevent Stroke handout has been added to the patients discharge packet. Antiplatelet(s) * Stop home aspirin 81mg PO daily * Start Clopidogrel 75mg PO daily Cholesterol * High intensity statin: atorvastatin 80 mg daily DVT Prophylaxis * anticoagulated on Coumadin, INR 2.4 today Therapeutic Anticoagulation * No history of Afib/Aflutter noted, but anticoagulated on Coumadin due to history of pulmonary embolism and deep vein thrombosis Type 2 Diabetes * Patient has T2DM, Dr. Calvin will address need for diabetes medication with proven CVD benefit.
[2024-11-03] MEDS: SODIUM ZIRCONIUM CYCLOSILICATE 10 GM PACKET PO SCH (11:12)
--- NOTE | 2024-11-03 13:02 | Hospitalist Progress Note ---
Date of Service November 03, 2024 Assessment & Plan (1) CVA (cerebral vascular accident): Plan: Ischemic right thalamic area CVA seen on head CT scan #2. He continues to have mild dysphasia and mild left hemiparesis and discoordination. Neurology consultation and recommendations appreciated. Aspirin has been switched over to Plavix. Cardiology has also seen the patient and recommended switching his Coumadin to either Eliquis or Xarelto. I will discuss this with the patient to see what he wants to do here. Unfortunately brain MRI scan cannot be obtained due to incompatible IVC filter. He is on Coumadin chronically and current INR is 2.4. Creatinine stable at 1.8 consistent with chronic kidney disease stage III. Lisinopril has been discontinued due to mild hyperkalemia. He has received 1 dose of patriomer. (2) Chronic anticoagulation: Plan: With Coumadin. INR is therapeutic at 2.2. (3) Hyperkalemia: Plan: Mild on admission. CARLOS inhibitor has been discontinued. He received a dose of patriomer with little effect. Lokelma has been ordered. Serial labs (4) History of pulmonary embolism: Plan: Apparently this is why he is on chronic Coumadin therapy (5) [place] filter in place: Plan: MRI scan was not done due to filter incompatibility with MRI scanning (6) Hx of deep venous thrombosis: Plan: Currently on chronic Coumadin therapy (7) Coronary artery arteriosclerosis: Plan: Stable. Continue current medical management (8) Diabetes mellitus: Plan: ADA diet. Sliding scale coverage if needed (9) Hypercholesterolemia: Plan: Stable. Continue statin therapy. (10) Benign essential hypertension: Plan: Allow permissive hypertension for the first 24 to 48 hours. Continue current medical management (11) Stage III chronic kidney disease: Plan: Monitor intake and output. Serial labs (12) Acquired hypothyroidism: Plan: Stable. Continue current thyroid replacement Plan Hopeful discharge to inpatient rehabilitation within the next day or 2 Admission and Anticipated Discharge Date Admission Date: November 02, 2024 Subjective No new problems. Mild dysarthria and mild left hemiparesis with ataxia persists. Head CT scan #2 reveals evidence of ischemic right thalamic CVA. Neurology has recommended switching aspirin to Plavix which has been done. Cardiology recommends switching Coumadin over to Eliquis or Xarelto. I will discuss this with the patient. Potassium remains elevated and Lokelma has been ordered. CARLOS inhibitor has been discontinued. Case management consulted for IPR placement. Review of Systems 2 Review of Systems: Constitutionalno fever or chills ENTno blurred vision, no double vision, no epistaxis, no sore throat Respiratoryno cough, no wheezing, no shortness of breath Cardiacno palpitations, no chest pain, no syncope Kathia nausea, vomiting, diarrhea, melena, hematochezia GUno urinary retention, no urinary incontinence, no dysuria, no hematuria Musculoskeletalno joint pain, no muscle tenderness Skinno bruising, no rashes, no pruritus Neuromild dysarthria persists. Mild left-sided weakness persists. Left-sided discoordination and ambulatory dysfunction persist. Psychno depression, no anxiety Physical Exam 2 Physical Exam: General-alert and oriented x3, no fever, no chills HEENT-head atraumatic and normocephalic, pupils equal and reactive to light, extraocular muscles intact Neck-no lymphadenopathy or thyromegaly, trachea midline Chest-clear to auscultation. No rales, wheezing or rhonchi Cardiac-regular rate and rhythm, normal S1 and S2 Abdomen-normal bowel sounds, no hepatosplenomegaly Extremities-no cyanosis, clubbing, or edema Neuro-mild dysarthria noted. Mild weakness of the left side. Discoordination of the left arm and left leg noted. He has a tendency to lean to the left when he ambulates with a walker Psych-normal affect, normal mood Results & Data Results & Data Vital Signs (Past 12 Hours) Vital Signs Temp Pulse Resp BP BP Pulse Ox O2 Del Method 11/03/24 11:54 36.6 C 69 20 158/91 H 96 Room Air 11/03/24 07:33 36.6 C 68 18 145/80 H 94 Room Air 11/03/24 03:38 36.4 C L 67 18 153/72 H 95 Room Air Laboratory Results 11/03/24 06:38 11/03/24 06:38 PG Care Time/CCT Total # of Minutes Spent Total Time Spent with Patient: Total time spent is greater than 50% in coordination of care (as documented) at patient's floor/unit and/or counseling patient: Coding Level of Care Code 24885 SUB INP/OBS CARE 2/35MIN Diagnoses CVA (cerebral vascular accident) I63.9 Chronic anticoagulation Z79.01 Hyperkalemia E87.5 History of pulmonary embolism Z86.[address] [address] Z95.828 Hx of deep venous thrombosis Z86.718 Coronary artery arteriosclerosis I25.10 Type 2 diabetes mellitus with diabetic nephropathy, without long-term current use of insulin E11.21 Diabetes mellitus type: type 2 Diabetes mellitus medical terminologist insulin use: without medical terminologist use Diabetes mellitus complication status: with kidney complications Diabetes mellitus complication detail: with nephropathy Hypercholesterolemia E78.00 Benign essential hypertension I10 Stage 3b chronic kidney disease N18.32 Chronic kidney disease stage 3 subtype: stage 3b (GFR 30-44) Acquired hypothyroidism E03.9 (8) Diabetes mellitus Diabetes mellitus type: type 2 Diabetes mellitus long-term insulin use: w ithout medical terminologist use Diabetes mellitus complication status: with kidney complications Diabetes mellitus complication detail: with nephropathy Qualified Code(s): E11.21 - Type 2 diabetes mellitus with diabetic nephropathy (11) Stage III chronic kidney disease Chronic kidney disease stage 3 subtype: stage 3b (GFR 30-44) Qualified Code(s): N18.32 - Chronic kidney disease, stage 3b
--- NOTE | 2024-11-03 14:54 | XCELERA ---
[id number]
--- NOTE | 2024-11-03 16:02 | Electrocardiogram Report ---
Test Reason : Blood Pressure : */* mmHG Vent. Rate : 72 BPM Atrial Rate : 72 BPM P-R Int : 166 ms QRS Dur : 88 ms QT Int : 396 ms P-R-T Axes : 69 31 54 degrees QTcB Int : 433 ms Normal sinus rhythm Low voltage QRS Cannot rule out Anterior infarct , age undetermined Abnormal ECG When compared with ECG of 02-Jun-2012 12:11, No significant change Confirmed by Armando Ochoa ([id number]) on 11/03/2024 4:02:12 PM Referred By: REFERRED SELF Confirmed By: Armando Ochoa
[2024-11-04 07:29] VITALS: RESP 20; O2SAT 95
[2024-11-04 07:42] LABS: Basophils # (auto) 0.04 K/uL (0.00-0.20); Basophils % (auto) 0.6 %; Eosinophils # (auto) 0.41 K/uL (0.00-0.50); Eosinophils % (auto) 6.5 %; Hematocrit (blood only) 34.7 % (42.0-52.0); Hemoglobin 10.9 g/dl (14.0-18.0); Immature Granulocytes # (auto) 0.02 K/uL (0.01-0.20); Immature Granulocytes % (auto) 0.3 %; Lymphocytes # (auto) 2.23 K/uL (1.20-3.40); Lymphocytes % (auto) 35.5 %; Mean Corpuscular Hemoglobin 27.5 pg (25.0-34.0); Mean Corpuscular Hgb Conc 31.4 g/dL (32.0-36.0); Mean Corpuscular Volume 87.4 fL (80.0-100.0); Mean Platelet Volume 10.4 fL (9.4-12.4); Monocytes # (auto) 0.37 K/uL (0.11-0.59); Monocytes % (auto) 5.9 %; Neutrophils # (auto) 3.22 K/uL (1.40-6.50); Neutrophils % (auto) 51.2 %; Platelet Count 223 K/uL (130-400); RDW Coefficient of Variation 16.4 % (11.5-14.5); RDW Standard Deviation 51.4 fL (36.4-46.3); Red Blood Count 3.97 M/uL (4.70-6.10); White Blood Count 6.29 K/ul (4.8-10.8)
[2024-11-04 08:04] LABS: Calcium 8.6 mg/dl (8.6-10.3); Creatinine Clr Calc Pharmacy 57.5 ml/min; Potassium 5.1 mmol/L (3.5-5.1)
[2024-11-04 08:18] LABS: INR 2.2 (0.9-1.1); Prothrombin Time 22.1 Seconds (9.0-12.0)
[2024-11-04 11:28] VITALS: PULSE 70; TEMP 97.9
[2024-11-04] MEDS ORDERED: STROKE PATIENT DISCHARGE STA (11:29)
--- NOTE | 2024-11-04 11:32 | Discharge Summary ---
Discharge Summary Date of Service November 04, 2024 Principal Dx & Hospital Course #1 = Principal Diagnosis (1) CVA (cerebral vascular accident): Ischemic right thalamic area CVA seen on head CT scan #2. He continues to have mild dysphasia and mild left hemiparesis and discoordination. Neurology consultation and recommendations appreciated. Aspirin has been switched over to Plavix. Cardiology has also seen the patient and recommended switching his Coumadin to either Eliquis or Xarelto. I will discuss this with the patient to see what he wants to do here. Unfortunately brain MRI scan cannot be obtained due to incompatible IVC filter. He is on Coumadin chronically and current INR is 2.2. Creatinine today is 1.6. Down from 1.8 yesterday, November 04. Findings are consistent with chronic kidney disease stage III. Lisinopril has been discontinued due to mild hyperkalemia. He was treated while hospitalized with patriomer and Lokelma. (2) Chronic anticoagulation: With Coumadin. INR is therapeutic at 2.2. (3) Hyperkalemia: Mild on admission. CARLOS inhibitor has been discontinued. He received a dose of patriomer and Lokelma. Potassium down to 5.1 today, November 04. Serial labs while hospitalized (4) History of pulmonary embolism: Apparently this is why he is on chronic Coumadin therapy. He could not take DOACS in the past due to expense (5) [place] filter in place: MRI scan was not done due to filter incompatibility with MRI scanning (6) Hx of deep venous thrombosis: Currently on chronic Coumadin therapy (7) Coronary artery arteriosclerosis: Stable. Continue current medical management (8) Diabetes mellitus: ADA diet. Sliding scale coverage if needed (9) Hypercholesterolemia: Stable. Continue statin therapy. (10) Benign essential hypertension: Allow permissive hypertension for the first 24 to 48 hours. Continue current medical management (11) Stage III chronic kidney disease: Monitor intake and output. Serial labs (12) Acquired hypothyroidism: Stable. Continue current thyroid replacement Plan Discharge to [facility] todayNovember 04 Admission HPI Per Admitting Provider 69yo right-handed male with history of DVT/PE with IVC filter & chronic coumadin use, CAD s/p HI in 1994, morbid obesity, T2DM, hyperlipidemia, CKD stage 3, HTN, and hypothyroidism who presents from home with the acute onset of left-sided weakness, minimal numbness left hand/foot/tongue, and slurred speech. Symptoms began about 8pm this evening. He was sitting in the chair watching TV when the symptoms began. He continued to watch TV, and when he got out of his chair to get ready for bed he had a fall to his left side due to the left leg being weak. He hit the left side of his head slightly during the fall. No loss of consciousness. Did not have any chest pain during the events of the night. He does have mild dyspnea intermittently and has had such tonight. Denies any visual change or acute vertigo this evening. Upon arrival to [facility] he was triaged as a stroke alert. Although he was in the window for lytic therapy he is on chronic coumadin (INR >2 today) and thus lytics were contraindicated. Since arrival to [facility] his speech has improved, and the numbness of the left hand/foot has resolved. His weakness in the left arm & leg is significantly improved although not back to baseline. He has not tried to swallow anything since arrival to the ER. Discharge Exam General-alert and oriented x3, no fever, no chills HEENT-head atraumatic and normocephalic, pupils equal and reactive to light, extraocular muscles intact Neck-no lymphadenopathy or thyromegaly, trachea midline Chest-clear to auscultation. No rales, wheezing or rhonchi Cardiac-regular rate and rhythm, normal S1 and S2 Abdomen-normal bowel sounds, no hepatosplenomegaly Extremities-no cyanosis, clubbing, or edema Neuro-mild dysarthria noted. Mild weakness of the left side. Discoordination of the left arm and left leg noted. He has a tendency to lean to the left when he ambulates with a walker Psych-normal affect, normal mood Discharge Plan Discharge Items Patient Disposition: Transfer Inpatient Rehab Fac Reason For Visit: LEFT-SIDED WEAKNESS Discharge Diagnosis: Acute ischemic right thalamic CVA with left hemiparesis and mild dysarthria, hyperkalemia Condition on Discharge: Good Activity: Resume your previous activity Non-emergency contact: Primary Care Provider Call non-emergency contact if: your symptoms worsen Follow-up/Referrals: Don Verma III, CRNP [Primary Care Provider] - Diet: Carb Consistent or DM2 and Heart Healthy Addtl Attending Provider Instructions: Aspirin has been switched to Plavix therapy. All other medications remain the same. See primary care provider soon as possible after discharge from [facility] Pending Studies at Discharge: No Stand-Alone Forms: [facility], Medications to Prevent Stroke Skilled Items Patient informed of condition?: Yes DNR: No Discharge Level of Care: Acute rehab Communicable Disease: No Discharge Prognosis: Stable Lines: None Urinary Catheter: No Medications and DC Order Prescriptions: New acetaminophen 325 mg Tablet 650 mg PO Q6H PRN (Reason: pain) Qty: 1 0RF warfarin 6 mg Tablet 6 mg PO [id number]@1600 Qty: 0 0RF nitroglycerin [Nitrostat] 0.4 mg Tablet, Sublingual 0.4 mg sublingual Q5M PRNQty: 0 0RF warfarin 3 mg Tablet 3 mg PO Fr@1600 Qty: 0 0RF clopidogrel 75 mg Tablet 75 mg PO QAM Qty: 0 0RF Continued warfarin 6 mg tablet See Rx Instructions PO .COMPLEX Rx Instructions: 3 mg Friday and 6 mg x 6 days orally magnesium glycinate 100 mg tablet 100 mg PO BID pantoprazole 40 mg tablet,delayed release (DR/EC) 40 mg PO DAILY Qty: 90 3RF Januvia 50 mg tablet 50 mg PO DAILY Qty: 90 3RF ezetimibe 10 mg tablet 10 mg PO DAILY Qty: 90 3RF metformin 1,000 mg tablet 1,000 mg PO BID Qty: 180 3RF allopurinol 100 mg tablet 100 mg PO DAILY Qty: 90 3RF metoprolol tartrate 25 mg tablet 25 mg PO BID Qty: 180 3RF atorvastatin 80 mg tablet 80 mg PO DAILY Qty: 90 3RF mecobalamin (vitamin B12) 1,000 mcg tablet,chewable 1,000 mcg PO DAILY cholecalciferol (vitamin D3) 25 mcg (1,000 unit) capsule 2,000 unit PO DAILY albuterol sulfate 90 mcg/actuation HFA aerosol inhaler 1 inh inhalation QID PRN (Reason: shortness of breath or wheezing) Qty: 6.7 5RF calcitriol 0.25 mcg capsule 0.25 mcg PO .COMPLEX Qty: 36 2RF Rx Instructions: 0.25 mcg orally every friday, friday, and friday; lisinopril 10 mg tablet 10 mg PO HS Qty: 90 3RF levothyroxine 100 mcg tablet 100 mcg PO DAILY Discontinued aspirin 81 mg tablet 81 mg PO DAILY Discharge Orders: Discharge Order (Routine); Ordered 11/04/24 Ordered By: Alber Lundberg/Other Patient Handouts: Managing Type 2 Diabetes, How to Check Your Blood Sugar, Diabetes: Meal Planning Admission Data Admit Date/Time: 11/02/24 04:33 Attending Provider: Alber Calvin Admit Provider: Damaso Acosta Primary Care Provider: Don Verma III Other Providers: Damaso Acosta; Lee Padilla; Mike Campos; Denny Doan; Davon Rivera; Jerson Espana; Armando Ochoa; Brando James Jr; Perico Springer; Cherri Galeana; Hannah Chinchilla; Agustin Landers; Agustin Nova; Suzette Hagen; Matt Bowie; Jace Richard; Rocio Pratt; Jace Butterfield; Kolby Munson; Paulo Giraldo; Jair Lopez; Matthieu Do; Evaristo Benson; Liliya Chavez; [facility] Hospital Stay Data Consultations 11/02/24 03:09 ED Decision to Admit Stat 11/02/24 06:01 Consult Neurology Routine 11/02/24 16:10 Consult Cardiology Routine Diagnostic Imagining Performed 11/02/24 02:02 CT angio head w con Stat CT angio neck with con Stat CT cervical spine wo con Stat CT head/brain wo con Stat 11/03/24 08:[address] [CT head/brain wo con] DAILY Pending Results Patient Have Any Pending Studies at Discharge: No Discharge Instructions Given to Patient (Per Discharging Provider) Aspirin has been switched to Plavix therapy. All other medications remain the same. See primary care provider soon as possible after discharge from [facility] Total Time Total Time Spent Total Time Spent (In Minutes): 50 minutes Coding Level of Care Code 27469 INP/OBS DISCH >30 MIN Diagnoses CVA (cerebral vascular accident) I63.9 Chronic anticoagulation Z79.01 Hyperkalemia E87.5 History of pulmonary embolism Z86.[address] Z95.828 Hx of deep venous thrombosis Z86.718 Coronary artery arteriosclerosis I25.10 Type 2 diabetes mellitus with diabetic nephropathy, without long-term current use of insulin E11.21 Diabetes mellitus type: type 2 Diabetes mellitus terminal manager insulin use: without intermediate use Diabetes mellitus complication status: with kidney complications Diabetes mellitus complication detail: with nephropathy Hypercholesterolemia E78.00 Benign essential hypertension I10 Stage 3b chronic kidney disease N18.32 Chronic kidney disease stage 3 subtype: stage 3b (GFR 30-44) Acquired hypothyroidism E03.9
[2024-11-04 12:00] VITALS: BP 166/91
[2024-11-05] MEDS ORDERED: WARFARIN SOD 3 MG TAB PO SCH (16:00)
== END 2024-11-04 13:17 | DRG 65 ==
LOC: ED 01:48 → SUATTDRO 04:33 → 2S 04:33